=== PATIENT | male | born 1980 | race Caucasian/White ===

== ENCOUNTER 2017-09-12 21:50 | Observation (INO) | payer OTHER ==
[2017-09-12] MEDS ORDERED: NITROGLYCERIN SL TABS 0.4 MG TAB SUBLINGUAL STA (22:04)
[2017-09-12] MEDS ORDERED: ASPIRIN 81 MG PO STA (22:04)
--- NOTE | 2017-09-12 22:11 | ED ---
Chest Pain HPI - General Chief Complaint: Chest Pain Stated Complaint: Chest Pain Time Seen by Provider: 09/12/17 21:58 Source: patient, family, RN notes reviewed Mode of arrival: wheelchair Limitations: no limitations - History of Present Illness Initial Comments: This is a 37-year-old male who states he is next smoker who quit 3 years ago who states he started developing right and midsternal chest pain about 30 minutes prior to admission while he was preparing to eat states it radiated to his back down his left arm to his left wrist and elbow. Also up to his jaw. Patient denies any fevers chills nausea vomiting sweats he does state the pain patient states that the pain was sharp initially 7/10 severity states that sharp pains better recently has pain is unable to describe behind his left elbow is 3/10 consistently. No cough no phlegm production no abnormal activity. Again no prior history of chest pain or heart disease. MD Complaint: chest pain - Related Data Home Medications Medication Instructions Recorded Confirmed Ibuprofen [Motrin] 200 - 400 mg PO Q6HR PRN 09/12/17 09/12/17 amLODIPine [Norvasc] 5 mg PO DAILY 09/12/17 09/12/17 Allergies Allergy/AdvReac Type Severity Reaction Status Date / Time Iodine and Iodide Containing Allergy Nausea & Verified 09/12/17 22:10 Produc Vomiting Review of Systems ROS Statement: Those systems with pertinent positive or pertinent negative responses have been documented in the HPI. ROS Other: All systems not noted in ROS Statement are negative. EKG Findings - EKG Results: EKG: interpreted by REBECCA, sinus rhythm (Sinus rhythm rate of 81. Interval 174 QRS 100 QT since QTC 34/[address]-T wave changes.) Past Medical History Past Medical History: Hypertension, Sleep Apnea/CPAP/BIPAP Additional Past Medical History / Comment(s): Rotator Cuff injury History of Any Multi-Drug Resistant Organisms: MRSA Date of last positivie culture/infection: 2007 MDRO Source:: Throat Past Surgical History: Orthopedic Surgery Additional Past Surgical History / Comment(s): Rt knee arthroscopy; colonoscopy 2009 Past Psychological History: No Psychological Hx Reported Smoking Status: Former smoker Past Alcohol Use History: Rare Past Drug Use History: None Reported General Exam - General Exam Comments Initial Comments: This is a well developed well-nourished awake alert oriented 3 male he does demonstrate evidence of morbid obesity Limitations: no limitations General appearance: alert, in no apparent distress Head exam: Present: atraumatic, normocephalic, normal inspection Eye exam: Present: normal appearance, PERRL, EOMI. Absent: scleral icterus, conjunctival injection, periorbital swelling ENT exam: Present: normal exam, mucous membranes moist Neck exam: Present: normal inspection. Absent: tenderness, meningismus, lymphadenopathy Respiratory exam: Present: normal lung sounds bilaterally. Absent: respiratory distress, wheezes, rales, rhonchi, stridor, chest wall tenderness Cardiovascular Exam: Present: regular rate, normal rhythm, normal heart sounds. Absent: systolic murmur, diastolic murmur, rubs, gallop, clicks GI/Abdominal exam: Present: soft, normal bowel sounds, other (Obese abdomen). Absent: distended, tenderness, guarding, rebound, rigid, bruit, pulsatile mass, hernia Extremities exam: Present: normal inspection, full ROM, normal capillary refill. Absent: tenderness, pedal edema, joint swelling, calf tenderness Back exam: Present: normal inspection Neurological exam: Present: alert, oriented X3, CN II-XII intact Psychiatric exam: Present: normal affect, normal mood Skin exam: Present: warm, dry, intact, normal color. Absent: rash Course Vital Signs 09/12/17 09/12/17 09/12/17 21:52 22:48 22:53 Temperature 98.8 F Pulse Rate 67 76 90 Respiratory 18 16 16 Rate Blood Pressure 158/90 145/89 132/69 O2 Sat by Pulse 97 98 97 Oximetry 09/12/17 09/13/17 23:24 00:17 Temperature 97.7 F Pulse Rate 74 72 Respiratory 19 18 Rate Blood Pressure 142/74 137/73 O2 Sat by Pulse 98 98 Oximetry - Reevaluation(s) Reevaluation #1: 09/13/17 00:37 Reevaluation of the nitroglycerin reveals minimal improvement in the pain. He does state the pain is gone down he thinks by self however. Chest Pain MDM - MDM I did review the imaging and report there was left lower lung base probable atelectasis noted. I did discuss findings with patient family the patient's presentation is suspicious for acute coronary syndrome. He will be admitted lab work thus far is nondiagnostic. EKG was nondiagnostic. Disposition Clinical Impression: Unstable angina pectoris, Chest pain Disposition: ADMITTED IP TO THIS HOSP Condition: Stable Referrals: Juancho Ruiz MD [Primary Care Provider] - 1-2 days
[2017-09-12 22:54] LABS: Basophils # (A) 0.1 k/uL (0-0.2); Basophils % (A) 1 %; CHCM 33.3; Eosinophils # (A) 0.3 k/uL (0-0.7); Eosinophils % (A) 3 %; HCT 44.9 % (39.0-53.0); HDW 2.92; HGB 14.3 gm/dL (13.0-17.5); Luc # (Auto) 0.14; Luc % (Auto) 1; Lymphocytes # (A) 1.7 k/uL (1.0-4.8); Lymphocytes % (A) 17 %; MCH 26.9 pg (25.0-35.0); MCHC 31.8 g/dL (31.0-37.0); MCV 84.6 fL (80.0-100.0); Mean Platelet Volume 7.7; Monocytes # (A) 0.7 k/uL (0-1.0); Monocytes % (A) 7 %; Neutrophils # (A) 7.2 k/uL (1.3-7.7); Neutrophils % (A) 71 %; RBC 5.31 m/uL (4.30-5.90); RDW 15.3 % (11.5-15.5); WBC 10.1 k/uL (3.8-10.6); WBC (Perox) 9.87
[2017-09-12 23:05] LABS: ALT 42 U/L (21-72); AST 32 U/L (17-59); Alkaline Phosphatase 62 U/L (38-126); Amylase 36 U/L (30-110); Anion Gap 9 mmol/L; Blood Urea Nitrogen 10 mg/dL (9-20); Calcium 8.9 mg/dL (8.4-10.2); Carbon Dioxide 25 mmol/L (22-30); Chloride 106 mmol/L (98-107); Glucose 94 mg/dL (74-99); Magnesium 2.1 mg/dL (1.6-2.3); Non-African American GFR(MDRD) >60 (>60 ml/min/1.73 sqM); Potassium 4.3 mmol/L (3.5-5.1); Sodium 140 mmol/L (137-145); Total Bilirubin 0.8 mg/dL (0.2-1.3); Total Protein 6.6 g/dL (6.3-8.2)
[2017-09-12 23:17] LABS: Creatine Kinase 131 U/L (55-170)
[2017-09-12 23:30] LABS: Creatine Kinase MB 1.2 ng/mL (0.0-2.4); Troponin I <0.012 ng/mL (0.000-0.034)
--- NOTE | 2017-09-12 23:33 | XR ---
EXAM: XR Chest, 2 Views CLINICAL HISTORY: Reason: Chest Pain TECHNIQUE: Frontal and lateral views of the chest. COMPARISON: 09/15/2016 FINDINGS: Lungs: Opacity in the left lung base. The right lung is clear. Pleural space: Unremarkable. No pneumothorax. Heart: Unremarkable. No cardiomegaly. Mediastinum: Unremarkable. Bones/joints: No acute osseous abnormality. IMPRESSION: Opacity in the left lung base is nonspecific and may represent atelectasis. An infectious or inflammatory process is not excluded.
[2017-09-12 23:34] LABS: Partial Thromboplastin Time 22.2 sec (22.0-30.0); Prothrombin Time 10.2 sec (9.0-12.0)
[2017-09-13] MEDS ORDERED: HEPARIN SODIUM,PORCINE 5,000 UNIT/ML 1 ML VIAL IV ONE (00:39)
[2017-09-13] MEDS ORDERED: NITROGLYCERIN SL TABS 0.4 MG TAB SUBLINGUAL PRN (00:39)
[2017-09-13] MEDS ORDERED: SODIUM CHLORIDE 0.9% 1,000 ML IV SCH (00:45)
[2017-09-13] MEDS ORDERED: HEPARIN SOD,PORK IN 0.45% NACL 25,000 UNIT in 0.45% NACL 1 500ML.BAG IV SCH (00:45)
[2017-09-13] MEDS ORDERED: cloNIDine HCL 0.1 MG TAB PO PRN ×2 (02:24→02:35)
[2017-09-13 02:38] VITALS: BMI 58.9
[2017-09-13 03:19] VITALS: RESP 18
[2017-09-13 05:15] LABS: Creatine Kinase 100 U/L (55-170)
[2017-09-13 05:27] LABS: Troponin I <0.012 ng/mL (0.000-0.034)
[2017-09-13] MEDS ORDERED: NITROGLYCERIN OINT 1 INCH/GM PACKET TOPICAL SCH (06:00)
[2017-09-13] MEDS ORDERED: HEPARIN SODIUM,PORCINE 5,000 UNIT/ML 1 ML VIAL IV PRN (07:09)
[2017-09-13] MEDS ORDERED: amLODIPine 5 MG TAB PO SCH (09:00)
[2017-09-13] MEDS ORDERED: cloNIDine HCL 0.2 MG TAB PO SCH (09:15)
--- NOTE | 2017-09-13 09:30 | P.CRDCN ---
History of Present Illness Consult date: 09/13/17 Consult reason: chest pain History of present illness: 57-year-old gentleman comes to Hospital complaining of chest pain. He describes it as precordial chest discomfort that radiates to his back. The pain gets worse with movement and deep breathing. He has prior diagnosis of costochondritis and muscular skeletal pain. Its mild to moderate intensity came on at rest without clear-cut relieving or exacerbating factors. At the time of my evaluation he appears comfortable at rest and the chest pain has improved. EKG doesn't reveal acute ischemic changes. Troponins are negative. D-dimer is negative. An echocardiogram is pending at this time. I will obtain a stress echo on him if this is abnormal consider invasive angiography Review of Systems Constitutional: Denies chills. Denies fever. Eyes: Denies blurred vision. Denies pain. Ears, nose, mouth and throat: Denies headache. Denies sore throat. Cardiovascular: chest pain. Denies shortness of breath. Respiratory: Denies cough. Gastrointestinal: Denies abdominal pain. Denies diarrhea. Denies nausea. Denies vomiting. Musculoskeletal: Denies myalgias. Integumentary: Denies pruritus. Denies rash. Neurological: Denies numbness. Denies weakness. Psychiatric: Denies anxiety. Denies depression. Endocrine: Denies fatigue. Denies weight change. Genitourinary: Denies burning, hematuria, frequency of urination. Hematological: No anemia or excess bleeding. Past Medical History Past Medical History: Hypertension, Sleep Apnea/CPAP/BIPAP Additional Past Medical History / Comment(s): Rotator Cuff injury, negative stress test 2013 History of Any Multi-Drug Resistant Organisms: MRSA Date of last positivie culture/infection: 2007 MDRO Source:: Throat Past Surgical History: Orthopedic Surgery Additional Past Surgical History / Comment(s): Rt knee arthroscopy; colonoscopy 2009; rt rotator cuff repair, Past Psychological History: No Psychological Hx Reported Smoking Status: Former smoker Past Alcohol Use History: Rare Past Drug Use History: None Reported - Past Family History Father Family Medical History: Cancer, Hypertension Mother Family Medical History: No Reported History Medications and Allergies Home Medications Medication Instructions Recorded Confirmed Type Ibuprofen [Motrin] 200 - 400 mg PO Q6HR PRN 09/12/17 09/12/17 History amLODIPine [Norvasc] 5 mg PO DAILY 09/12/17 09/12/17 History Allergies Allergy/AdvReac Type Severity Reaction Status Date / Time Iodine and Iodide Containing Allergy Nausea & Verified 09/12/17 22:10 Produc Vomiting Physical Exam Vitals: Vital Signs Temp Pulse Pulse Resp BP BP Pulse Ox 09/13/17 08:00 97.6 F 83 18 174/90 94 L 09/13/17 04:00 66 18 144/91 92 L 09/13/17 03:00 164/92 09/13/17 02:30 172/107 09/13/17 02:15 96.8 F L 68 18 173/100 97 09/13/17 01:14 97.7 F 70 19 161/86 98 09/13/17 00:17 72 18 137/73 98 09/12/17 23:24 97.7 F 74 19 142/74 98 09/12/17 22:53 90 16 132/69 97 09/12/17 22:48 76 16 145/89 98 09/12/17 21:52 98.8 F 67 18 158/90 97 Intake and Output 09/12/17 09/13/17 09/13/17 22:59 06:59 14:59 Intake Total 118.333 Balance 118.333 Intake: Intake, IV Titration 118.333 Amount Heparin Sod,Pork in 0.45% 118.333 NaCl 25,000 unit In 0.45 % NaCl 1 500ml.bag @ 5.3 UNITS/KG/HR 20.32 mls/hr IV .Q24H [facility] Rx#: [id number] Other: Voiding Method Toilet # Voids 0 Weight 195.045 kg 191.1 kg General: The patient is awake and alert, in no distress, and does not appear acutely ill. Skin: Skin is warm and dry and no rashes or lesions are noted. Eye: Pupils are equal, round and reactive to light, extra-ocular movements are intact; there is normal conjunctiva bilaterally. Ears, nose, mouth and throat: There are moist mucous membranes and no oral lesions. Neck: The neck is supple, there is no tenderness or JVD. Cardiovascular: There is a regular rate and rhythm. No murmur, rub or gallop is appreciated. Respiratory: Lungs are clear to auscultation, respirations are non-labored, breath sounds are equal. Gastrointestinal: Soft, non-distended, non-tender abdomen without masses or organomegaly noted. There is no rebound or guarding present. Bowel sounds are unremarkable. Back: There is no tenderness to palpation in the midline. There is no obvious deformity. Musculoskeletal: Normal ROM, no tenderness, There is no pedal edema. There is no calf tenderness or swelling. Extremities: No edema. Vascular: Femoral pulse is normal. Posterior tibial pulses are normal .Dorsalis pedis is palpable. Neurological: CN II-XII intact. There are no obvious motor or sensory deficits. Speech is normal. Psychiatric: Cooperative, appropriate mood & affect, normal judgment. Results 09/12/17 22:42 09/12/17 22:42 Cardiac Enzymes 09/12/17 09/12/17 09/13/17 Range/Units 22:42 22:42 04:39 AST 32 (17-59) U/L CK-MB (CK-2) 1.2 1.0 (0.0-2.4) ng/mL Troponin I <0.012 <0.012 (0.000-0.034) ng/mL Coagulation 09/12/17 09/13/17 Range/Units 22:42 06:24 PT 10.2 (9.0-12.0) sec APTT 22.2 25.9 (22.0-30.0) sec CBC 09/12/17 Range/Units 22:42 WBC 10.1 (3.8-10.6) k/uL RBC 5.31 (4.30-5.90) m/uL Hgb 14.3 (13.0-17.5) gm/dL Hct 44.9 (39.0-53.0) % Plt Count 298 (150-450) k/uL Comprehensive Metabolic Panel 09/12/17 Range/Units 22:42 Sodium 140 (137-145) mmol/L Potassium 4.3 (3.5-5.1) mmol/L Chloride 106 (98-107) mmol/L Carbon Dioxide 25 (22-30) mmol/L BUN 10 (9-20) mg/dL Creatinine 0.70 (0.66-1.25) mg/dL Glucose 94 (74-99) mg/dL Calcium 8.9 (8.4-10.2) mg/dL AST 32 (17-59) U/L ALT 42 (21-72) U/L Alkaline Phosphatase 62 (38-126) U/L Total Protein 6.6 (6.3-8.2) g/dL Albumin 3.4 L (3.5-5.0) g/dL Current Medications Generic Name Dose Route Start Last Admin Trade Name Mona PRN Reason Stop Dose Admin Amlodipine Besylate 10 mg 09/14/17 09:00 Norvasc PO DAILY [facility] Aspirin 325 mg 09/14/17 09:00 Aspirin PO DAILY [facility] Clonidine 0.2 mg 09/13/17 09:15 Catapres PO BID [facility] Heparin Sodium (Porcine) 0 unit 09/13/17 07:09 09/13/17 08:13 Heparin IV 4,000 unit PER PROTOCOL PRN Administration Low PTT Protocol Heparin Sodium/Sodium Chloride 500 mls @ 20.32 mls/hr 09/13/17 00:45 07:07 25,000 unit/ Sodium Chloride IV 8.12 units/kg/hr .Q24H ANNE 31.14 mls/hr Protocol Titration 5.3 UNITS/KG/HR Sodium Chloride 1,000 mls @ 20 mls/hr 09/13/17 00:45 09/13/17 01:09 Saline 0.9% IV 20 mls/hr .Q24H ANNE Administration Nitroglycerin 0.4 mg 09/13/17 00:39 Nitrostat SUBLINGUAL Q5M PRN Chest Pain Intake and Output 09/12/17 09/13/17 09/13/17 22:59 06:59 14:59 Intake Total 118.333 Balance 118.333 Intake: Intake, IV Titration 118.333 Amount Heparin Sod,Pork in 0.45% 118.333 NaCl 25,000 unit In 0.45 % NaCl 1 500ml.bag @ 5.3 UNITS/KG/HR 20.32 mls/hr IV .Q24H [facility] Rx#: [id number] Other: Voiding Method Toilet # Voids 0 Weight 195.045 kg 191.1 kg 09/12/17 22:42 09/12/17 22:42 EKG Interpretations (text) Normal sinus rhythm within normal limits Assessment and Plan Assessment: Precordial chest pain Hypertension Myocardial infarction is ruled out patient chest discomfort seems atypical and probably musculoskeletal. I will obtain a stress echo if this is abnormal will consider cardiac catheterization if not will work on risk factor modification
[2017-09-13 12:34] LABS: Creatine Kinase 85 U/L (55-170)
[2017-09-13 12:47] LABS: Creatine Kinase MB 0.7 ng/mL (0.0-2.4); Troponin I <0.012 ng/mL (0.000-0.034)
--- NOTE | 2017-09-13 13:37 | ECHOS ---
STRESS ECHOCARDIOGRAM DATE OF SERVICE: 09/13/2017 INDICATIONS: Chest pain. MEDICATIONS:: Amlodipine. BASELINE HEART RATE: 91 BASELINE BLOOD PRESSURE: 144/101 MAXIMUM HEART RATE: 156 MAXIMUM BLOOD PRESSURE: 177/67 85% MPHR: 157 100% MPHR: 185 METS: 8.3 MAXIMUM STAGE REACHED: III TOTAL EXERCISE TIME: 7 minutes CLINICAL INFORMATION: This is a very morbidly obese patient and his images were suboptimal. I therefore used Definity. Baseline EKG revealed normal sinus rhythm without significant ST-T changes. Patient walked for about 7 minutes, achieved a maximal heart rate of 156 beats per minute which is almost 85% of predicted maximum. Developed fatigue and shortness of breath. He also had some atypical sharp chest discomfort. EKG did not reveal any ST-segment changes to indicate ischemia. By EKG criteria, this is a negative stress test with fair exercise capacity with atypical chest pain. Baseline echo images revealed normal wall motion wall thickening of all segments. At peak exercise, there was good augmentation of left ventricular wall motion and wall thickening of all segments. By the time images were obtained, heart rate was lower, but at a rate 132 beats per minute, his ejection fraction has improved and there is no evidence to suggest any ischemia on this stress echocardiogram. FINAL IMPRESSION: 1. Fair exercise capacity with a negative stress test by EKG criteria. 2. Echo images were suboptimal, Definity was used, but there is no evidence to suggest any ischemia on the basis of stress echocardiogram. FELI / LAURIE: [id number] /
[2017-09-13 15:58] VITALS: BP 161/103; PULSE 90; TEMP 98.1
--- NOTE | 2017-09-13 20:28 | HP ---
HISTORY AND PHYSICAL DATE OF ADMISSION: 09/13/17 PRESENTING COMPLAINT: Sharp chest pain. HISTORY OF PRESENTING COMPLAINT: This is a very pleasant 37-year-old patient of Dr. Ruiz whose chronic stable medical conditions include hypertension, obstructive sleep apnea uses CPAP machine and morbid obesity. The patient did have a stress test in 2013 that was negative. In the last course of 3 years, patient has put about 130 pounds. Last night, the patient developed sharp anterior chest pain, did also have some back pain, also some jaw pain and some arm pain. No sweating. No dizziness. No tiredness. The patient did not remembering doing any usual activity. Decided to come in. The patient is rather active at work. No prior cardiac history. REVIEW OF SYSTEMS: CONSTITUTIONAL: None. HEENT: None. RESPIRATORY: None. CARDIOVASCULAR: As above. GASTROINTESTINAL: None. GENITOURINARY: None. MUSCULOSKELETAL: None. DERMATOLOGICAL: None, HEMATOLOGIC, LYMPHATIC: none. PSYCHIATRY: None. NEUROLOGICAL: None. PAST MEDICAL HISTORY: Hypertension, obstructive sleep apnea, obesity, rotator cuff injury. PAST SURGICAL HISTORY: Orthopedic surgery, right knee arthroscopy right rotator cuff surgery. SOCIAL HISTORY: Patient smoked for 10 years, stopped 3 years ago. . The patient works at [employer]. FAMILY HISTORY: Family history of cancer, hypertension, type unknown. HOME MEDICATIONS: 1. Motrin 200-400 mg q.6h p.r.n. 2. Norvasc 5 mg p.o. daily. ALLERGIES: To [employer]. PHYSICAL EXAMINATION: Vital signs on presentation: Temperature 98.8, pulse 57, respiratory 18, blood pressure 150/90, pulse ox 97% on room air. GENERAL APPEARANCE: Well built, BMI 58.8, sitting up, comfortable. EYES: Pupils equal. Conjunctivae normal. HEENT: Oral cavity normal. NECK: JVD not raised. Mass not palpable. RESPIRATORY: Effort normal. Lungs are clear. CARDIOVASCULAR: 1st and 2nd sounds. No edema. ABDOMEN: Soft, nontender. Liver and spleen not palpable. LYMPHATIC: No lymph nodes palpable in neck or axillae. PSYCHIATRY: Alert and oriented x3. Mood and affect normal. NEUROLOGICAL: Pupils equal. Cranial nerves grossly intact. Power sensation grossly intact. INVESTIGATION: White count 10.1, hemoglobin 14.3 potassium 4.3, BUN and creatinine normal. Troponin x3 is negative. EKG normal sinus rhythm. ASSESSMENT: 1. Anterior chest wall pain as patient has patient has put on about 130 pounds in the last 3 years, likely musculoskeletal given his morbid obesity. Cardiac cause needs to be ruled out. 2. Essential hypertension, somewhat uncontrolled. 3. Morbid obesity, BMI 58.8. 4. Obstructive sleep apnea, does use a CPAP machine. PLAN: Cardiology was consulted who ordered a stress test. Blood pressure medications were adjusted. Did talk to patient at length about weight loss measures. MMADDIEL / IJN: [id number] /
--- NOTE | 2017-09-13 21:23 | DS ---
DISCHARGE SUMMARY FINAL DIAGNOSES: 1. Anterior chest wall pain possibly musculoskeletal. 2. Morbid obesity BMI 58.8. 3. Essential hypertension uncontrolled present on admission. 4. Obstructive sleep apnea. Patient does use CPAP machine. HOSPITAL COURSE: This patient presented with atypical chest pain and did undergo stress echocardiogram that was negative. Seen by Dr. Adeline Santos. Okay to be discharged. I did speak at length with the patient about weight loss measures. The patient's blood pressure medications were adjusted. DISCHARGE MEDICATIONS: Motrin 2-400 mg q.6h p.r.n. Norvasc 10 mg p.o. daily new dose, Catapres 0.2 mg p.o. b.i.d., new medication. Follow with Dr. Ruiz on September 16, 2017, follow with Dr. Adeline Santos in 1 week. Diet: Calorie restricted diet. Patient should follow with the dietitian also as an outpatient. Copy to Dr. Ruiz. MMJENNA / HANNAHN: [id number] /
[2017-09-14] MEDS ORDERED: ASPIRIN 325 MG TAB PO SCH (09:00)
[2017-09-14] MEDS ORDERED: amLODIPine 10 MG TAB PO SCH (09:00)
== END 2017-09-13 16:36 | disposition home or self-care (01) ==
LOC: EC 21:50 → 3OBS 09-13 00:39 → 6SEL 09-13 02:01
PROVIDERS: ADMIT Hospitalist; ATTEND Hospitalist
DX: R07.89 Other chest pain (principal); E66.01 Morbid (severe) obesity due to excess calories; Z68.43 Body mass index [BMI] 50.0-59.9, adult; I10 Essential (primary) hypertension; R68.84 Jaw pain; M54.9 Dorsalgia, unspecified; M79.602 Pain in left arm; G47.33 Obstructive sleep apnea (adult) (pediatric); Z99.89 Dependence on other enabling machines and devices; Z79.899 Other long term (current) drug therapy; Z91.048 Other nonmedicinal substance allergy status; Z87.891 Personal history of nicotine dependence; Z86.14 Personal history of Methicillin resistant Staphylococcus aureus infection; Z87.828 Personal history of other (healed) physical injury and trauma
CPT/HCPCS: 99285 ×2; 96376 ×3; 96365 ×2; 36415; 93005; 93350; 93017; 85379; 83880; 80053; 82150; 82550 ×2; 82553 ×2; 83690; 83735; 84484 ×2; 85025; 85610; 85730 ×2; 71020; G0378; J1644 ×2; Q9957

== ENCOUNTER 2019-08-21 03:07 | Emergency (ER) | payer OTHER ==
[2019-08-21] MEDS ORDERED: SODIUM CHLORIDE 0.9% 1,000 ML IV STA (04:22)
--- NOTE | 2019-08-21 04:25 | ED ---
Dizziness HPI - General Source: patient Mode of arrival: ambulatory Limitations: no limitations <Delmar Davis - Last Filed: 08/21/19 04:25> <Alan Chopra - Last Filed: 08/21/19 05:29> - General Chief Complaint: Dizziness Stated Complaint: Dizzy Time Seen by Provider: 08/21/19 03:19 - History of Present Illness Initial Comments: Patient is 39-year-old male presenting to the emergency department with a chief complaint of lightheadedness and dizziness. Patient reports he went to work at 2100 and mildly was standing and developed an on and off episodes of lightheadedness and dizziness. Patient reports the lightheadedness since resolved, however the mild dizziness is continuing. Patient denies any headaches, blurry vision, shortness breath, chest pain or chest wall edition, gait instability. Patient denies recent URIs. Patient denies. Episodes of vertigo. Patient denies changes in hearing or tinnitus. (Delmar Davis) - Related Data Home Medications Medication Instructions Recorded Confirmed Ibuprofen [Motrin] 200 - 400 mg PO Q6HR PRN 09/12/17 09/12/17 Previous Rx's Medication Instructions Recorded amLODIPine [Norvasc] 10 mg PO DAILY #30 tab 09/13/17 cloNIDine HCL [Catapres] 0.2 mg PO BID #60 tab 09/13/17 Meclizine [Antivert] 25 mg PO TID PRN #30 tab 08/21/19 Allergies Allergy/AdvReac Type Severity Reaction Status Date / Time Iodine and Iodide Containing Allergy Nausea & Verified 08/21/19 03:18 Produc Vomiting Review of Systems ROS Other: All systems not noted in ROS Statement are negative. <Delmar Davis - Last Filed: 08/21/19 04:25> ROS Other: All systems not noted in ROS Statement are negative. <Alan Chopra - Last Filed: 08/21/19 05:29> ROS Statement: Those systems with pertinent positive or pertinent negative responses have been documented in the HPI. Past Medical History Past Medical History: Hypertension, Sleep Apnea/CPAP/BIPAP Additional Past Medical History / Comment(s): Rotator Cuff injury, negative stress test 2013 History of Any Multi-Drug Resistant Organisms: MRSA Date of last positivie culture/infection: 2007 MDRO Source:: Throat Past Surgical History: Orthopedic Surgery Additional Past Surgical History / Comment(s): Rt knee arthroscopy; colonoscopy 2010; rt rotator cuff repair, Past Psychological History: No Psychological Hx Reported Smoking Status: Former smoker Past Alcohol Use History: Rare Past Drug Use History: None Reported - Past Family History Father Family Medical History: Cancer, Hypertension Mother Family Medical History: No Reported History <Delmar Davis - Last Filed: 08/21/19 04:25> General Exam Limitations: no limitations General appearance: alert, in no apparent distress, obese Head exam: Present: atraumatic, normocephalic, normal inspection Eye exam: Present: normal appearance Pupils: Present: normal accommodation ENT exam: Present: normal exam, mucous membranes moist Neck exam: Present: normal inspection, full ROM Respiratory exam: Present: normal lung sounds bilaterally Cardiovascular Exam: Present: regular rate, normal rhythm, normal heart sounds Extremities exam: Present: normal inspection, full ROM Back exam: Present: normal inspection, full ROM Neurological exam: Present: alert, oriented X3, CN II-XII intact, normal gait Psychiatric exam: Present: normal affect, normal mood Skin exam: Present: warm, dry, intact, normal color <Delmar Davis - Last Filed: 08/21/19 04:25> Course Vital Signs 08/21/19 08/21/19 03:15 04:34 Temperature 98.2 F Pulse Rate 81 83 Respiratory 20 18 Rate Blood Pressure 171/123 161/101 O2 Sat by Pulse 96 98 Oximetry EKG Findings - EKG Comments: EKG Findings:: Normal sinus rhythm, T-wave inversions in lead 3. Left axis deviation. Ventricular rate 79 AL interval 166, QRS duration 98, QT/QTC 346/396 <Delmar Davis - Last Filed: 08/21/19 04:25> Medical Decision Making - Lab Data Result diagrams: 08/21/19 04:02 08/21/19 04:02 <Alan Chopra - Last Filed: 08/21/19 05:29> - Medical Decision Making 39-year-old male episode of dizziness while working this evening. Symptoms resolved with time my evaluation. He does describe a room spinning sensation. No history of vertigo. No recent URI symptoms. No earaches. Patient well- appearing mildly hypertensive emergency department. No other associated symptoms no headache no focal numbness or weakness. No chest pain or palpitations. Patient has normal CBC normal electrolytes, EKG sinus rhythm. No abdominal pain nausea vomiting. Patient feeling better with IV fluids and meclizine. Will be discharged at this time. Will return with worsening or changing symptoms. (Alan Chopra) - Lab Data Lab Results 08/21/19 08/21/19 Range/Units 04:02 04:02 WBC 9.4 (3.8-10.6) k/uL RBC 5.63 (4.30-5.90) m/uL Hgb 16.0 (13.0-17.5) gm/dL Hct 48.6 (39.0-53.0) % MCV 86.3 (80.0-100.0) fL MCH 28.3 (25.0-35.0) pg MCHC 32.8 (31.0-37.0) g/dL RDW 13.8 (11.5-15.5) % Plt Count 301 (150-450) k/uL Neutrophils % 68 % Lymphocytes % 20 % Monocytes % 6 % Eosinophils % 2 % Basophils % 2 % Neutrophils # 6.4 (1.3-7.7) k/uL Lymphocytes # 1.8 (1.0-4.8) k/uL Monocytes # 0.6 (0-1.0) k/uL Eosinophils # 0.2 (0-0.7) k/uL Basophils # 0.2 (0-0.2) k/uL Sodium 139 (137-145) mmol/L Potassium (3.5-5.1) mmol/L Chloride 107 (98-107) mmol/L Carbon Dioxide 26 (22-30) mmol/L Anion Gap 6 mmol/L BUN 12 (9-20) mg/dL Creatinine 0.75 (0.66-1.25) mg/dL Est GFR (CKD-EPI)AfAm >90 (>60 ml/min/1.73 sqM) Est GFR (CKD-EPI)NonAf >90 (>60 ml/min/1.73 sqM) Glucose 84 (74-99) mg/dL Calcium 9.1 (8.4-10.2) mg/dL Total Bilirubin 1.4 H (0.2-1.3) mg/dL AST 68 H (17-59) U/L ALT 18 L (21-72) U/L Alkaline Phosphatase 45 (38-126) U/L Total Protein 8.0 (6.3-8.2) g/dL Albumin 4.3 (3.5-5.0) g/dL Disposition <Delmar Davis - Last Filed: 08/21/19 04:25> Is patient prescribed a controlled substance at d/c from ED?: No Time of Disposition: 05:27 <Alan Chopra - Last Filed: 08/21/19 05:29> Clinical Impression: Dehydration, Vertigo Disposition: HOME SELF-CARE Condition: Fair Instructions (If sedation given, give patient instructions): Dizziness (ED) Prescriptions: Meclizine [Antivert] 25 mg PO TID PRN #30 tab PRN Reason: Vertigo Referrals: Juancho Ruiz MD [Primary Care Provider] - 1-2 days
[2019-08-21 04:30] LABS: Basophils # (A) 0.2 k/uL (0-0.2); Basophils % (A) 2 %; Eosinophils # (A) 0.2 k/uL (0-0.7); Eosinophils % (A) 2 %; HCT 48.6 % (39.0-53.0); Lymphocytes # (A) 1.8 k/uL (1.0-4.8); Lymphocytes % (A) 20 %; MCH 28.3 pg (25.0-35.0); MCHC 32.8 g/dL (31.0-37.0); MCV 86.3 fL (80.0-100.0); Mean Platelet Volume 7.7; Monocytes # (A) 0.6 k/uL (0-1.0); Monocytes % (A) 6 %; Neutrophils # (A) 6.4 k/uL (1.3-7.7); Neutrophils % (A) 68 %; Platelet Count 301 k/uL (150-450); RBC 5.63 m/uL (4.30-5.90); RDW 13.8 % (11.5-15.5); WBC 9.4 k/uL (3.8-10.6)
[2019-08-21 04:35] VITALS: RESP 18
[2019-08-21 04:39] LABS: ALT 18 U/L (21-72); AST 68 U/L (17-59); African American GFR (CKD) >90 (>60 ml/min/1.73 sqM); Albumin 4.3 g/dL (3.5-5.0); Alkaline Phosphatase 45 U/L (38-126); Anion Gap 6 mmol/L; Blood Urea Nitrogen 12 mg/dL (9-20); Calcium 9.1 mg/dL (8.4-10.2); Carbon Dioxide 26 mmol/L (22-30); Chloride 107 mmol/L (98-107); Glucose 84 mg/dL (74-99); Non-African American GFR(CKD) >90 (>60 ml/min/1.73 sqM); Sodium 139 mmol/L (137-145); Total Bilirubin 1.4 mg/dL (0.2-1.3)
[2019-08-21 05:55] VITALS: BP 147/90; PULSE 80; TEMP 98.7
== END 2019-08-21 05:55 | disposition home or self-care (01) ==
LOC: EC 03:07
DX: E86.0 Dehydration (principal); I16.1 Hypertensive emergency; G47.30 Sleep apnea, unspecified; Z87.891 Personal history of nicotine dependence; Z91.048 Other nonmedicinal substance allergy status; Z86.14 Personal history of Methicillin resistant Staphylococcus aureus infection; Z86.79 Personal history of other diseases of the circulatory system; Z99.89 Dependence on other enabling machines and devices; Z82.49 Family history of ischemic heart disease and other diseases of the circulatory system
CPT/HCPCS: 36415; 80053; 85025; 93005; 96360; 99284

== ENCOUNTER 2020-10-06 20:13 | Observation (INO) | payer OTHER ==
--- NOTE | 2020-10-06 20:53 | XR ---
EXAMINATION TYPE: XR chest 2V DATE OF EXAM: 10/06/2020 COMPARISON: 09/12/2017 HISTORY: Chest pain TECHNIQUE: 2 views FINDINGS: Heart and mediastinum are normal. There is some minimal infiltrate at the left lung base. T he right lung is clear. There are no hilar masses. Bony thorax is intact. There is no heart failure. IMPRESSION: Minimal chronic infiltrate left lung base similar to old exam. Normal heart.
[2020-10-06] MEDS ORDERED: ASPIRIN 81 MG PO STA (20:55)
[2020-10-06] MEDS ORDERED: NITROGLYCERIN SL TABS 0.4 MG TAB SUBLINGUAL STA ×3 (20:55)
[2020-10-06 21:03] LABS: Basophils # (A) 0.1 k/uL (0-0.2); Basophils % (A) 1 %; Eosinophils # (A) 0.3 k/uL (0-0.7); Eosinophils % (A) 4 %; HCT 48.6 % (39.0-53.0); HGB 16.2 gm/dL (13.0-17.5); Lymphocytes # (A) 2.3 k/uL (1.0-4.8); Lymphocytes % (A) 29 %; MCH 28.1 pg (25.0-35.0); MCHC 33.3 g/dL (31.0-37.0); MCV 84.5 fL (80.0-100.0); Mean Platelet Volume 7.8; Monocytes # (A) 0.5 k/uL (0-1.0); Monocytes % (A) 7 %; Neutrophils # (A) 4.6 k/uL (1.3-7.7); Neutrophils % (A) 58 %; Platelet Count 287 k/uL (150-450); RBC 5.75 m/uL (4.30-5.90); RDW 14.4 % (11.5-15.5)
--- NOTE | 2020-10-06 21:03 | ED ---
General Adult HPI - General Chief complaint: Chest Pain Stated complaint: Chest Pain/COVID+ Time Seen by Provider: 10/06/20 20:30 Source: patient, RN notes reviewed Mode of arrival: ambulatory Limitations: no limitations - History of Present Illness Initial comments: Patient is a pleasant 40-year-old male presenting to the emergency Department with complaints of chest discomfort. Onset of symptoms was around an hour ago. Discomfort is moderate at this time. Hard to describe. No radiation. Patient does feel short of breath. No history of similar symptoms previously. No leg pain or leg swelling. Patient did have cough and tested positive for covid several days ago. Patient has not had any cough recently. - Related Data Home Medications Medication Instructions Recorded Confirmed Ibuprofen [Motrin] 200 - 400 mg PO Q6HR PRN 09/12/17 09/12/17 Previous Rx's Medication Instructions Recorded amLODIPine [Norvasc] 10 mg PO DAILY #30 tab 09/13/17 cloNIDine HCL [Catapres] 0.2 mg PO BID #60 tab 09/13/17 Meclizine [Antivert] 25 mg PO TID PRN #30 tab 08/21/19 Allergies Allergy/AdvReac Type Severity Reaction Status Date / Time Iodine and Iodide Containing Allergy Nausea & Verified 10/06/20 20:19 Produc Vomiting Review of Systems ROS Statement: Those systems with pertinent positive or pertinent negative responses have been documented in the HPI. ROS Other: All systems not noted in ROS Statement are negative. Constitutional: Denies: fever, chills Eyes: Denies: eye pain ENT: Denies: ear pain Respiratory: Reports: as per HPI Cardiovascular: Reports: chest pain Endocrine: Denies: fatigue Gastrointestinal: Denies: abdominal pain Genitourinary: Denies: dysuria Musculoskeletal: Denies: back pain Skin: Denies: rash Neurological: Denies: weakness Past Medical History Past Medical History: Hypertension, Sleep Apnea/CPAP/BIPAP Additional Past Medical History / Comment(s): Rotator Cuff injury, negative stress test 2013 History of Any Multi-Drug Resistant Organisms: MRSA Date of last positivie culture/infection: 2007 MDRO Source:: Throat Past Surgical History: Orthopedic Surgery Additional Past Surgical History / Comment(s): Rt knee arthroscopy; colonoscopy 2009; rt rotator cuff repair, Past Psychological History: No Psychological Hx Reported Smoking Status: Former smoker Past Alcohol Use History: Rare Past Drug Use History: None Reported - Past Family History Father Family Medical History: Cancer, Hypertension Mother Family Medical History: No Reported History General Exam Limitations: no limitations General appearance: alert, in no apparent distress, obese Head exam: Present: normocephalic Eye exam: Present: normal appearance Neck exam: Present: normal inspection Respiratory exam: Present: normal lung sounds bilaterally Cardiovascular Exam: Present: regular rate, normal rhythm Expanded Peripheral pulses: 2+: Radial (R), Radial (L), Posterior Tibialis (R), Posterior Tibialis (L) GI/Abdominal exam: Present: soft. Absent: tenderness Extremities exam: Present: normal inspection. Absent: calf tenderness Neurological exam: Present: alert Psychiatric exam: Present: normal affect, normal mood Skin exam: Present: normal color Course Vital Signs 10/06/20 10/06/20 10/06/20 20:16 21:20 22:01 Temperature 98.7 F Pulse Rate 63 69 74 Respiratory 20 18 18 Rate Blood Pressure 181/105 150/84 109/99 O2 Sat by Pulse 96 94 L 98 Oximetry EKG Findings - EKG Comments: EKG Findings:: Sinus rhythm with a rate of 70. ID 182. QRS 96. QT 388. QTC 419. Left axis. Normal QRS. No acute ST change. Medical Decision Making - Medical Decision Making Patient reevaluated and resting comfortably sitting up in bed. Patient states not much improvement of symptoms. Patient updated on results and plan. Case discussed with Dr. Sosa, who will admit covering for Dr. Ruiz - Lab Data Result diagrams: 10/06/20 20:54 10/06/20 20:54 Lab Results 10/06/20 10/06/20 10/06/20 Range/Units 20:54 20:54 20:54 WBC 8.0 (3.8-10.6) k/uL RBC 5.75 (4.30-5.90) m/uL Hgb 16.2 (13.0-17.5) gm/dL Hct 48.6 (39.0-53.0) % MCV 84.5 (80.0-100.0) fL MCH 28.1 (25.0-35.0) pg MCHC 33.3 (31.0-37.0) g/dL RDW 14.4 (11.5-15.5) % Plt Count 287 (150-450) k/uL MPV 7.8 Neutrophils % 58 % Lymphocytes % 29 % Monocytes % 7 % Eosinophils % 4 % Basophils % 1 % Neutrophils # 4.6 (1.3-7.7) k/uL Lymphocytes # 2.3 (1.0-4.8) k/uL Monocytes # 0.5 (0-1.0) k/uL Eosinophils # 0.3 (0-0.7) k/uL Basophils # 0.1 (0-0.2) k/uL PT 10.3 (9.0-12.0) sec INR 1.0 (<1.2) APTT 22.4 (22.0-30.0) sec D-Dimer 0.37 (<0.60) mg/L FEU Sodium 137 (137-145) mmol/L Potassium 3.8 (3.5-5.1) mmol/L Chloride 104 (98-107) mmol/L Carbon Dioxide 29 (22-30) mmol/L Anion Gap 4 mmol/L BUN 16 (9-20) mg/dL Creatinine 0.73 (0.66-1.25) mg/dL Est GFR (CKD-EPI)AfAm >90 (>60 ml/min/1.73 sqM) Est GFR (CKD-EPI)NonAf >90 (>60 ml/min/1.73 sqM) Glucose 131 H (74-99) mg/dL Calcium 9.1 (8.4-10.2) mg/dL Magnesium 1.8 (1.6-2.3) mg/dL Total Bilirubin 0.6 (0.2-1.3) mg/dL AST 32 (17-59) U/L ALT 37 (4-49) U/L Alkaline Phosphatase 55 (38-126) U/L Troponin I (0.000-0.034) ng/mL Total Protein 6.7 (6.3-8.2) g/dL Albumin 3.6 (3.5-5.0) g/dL 10/06/20 Range/Units 20:54 WBC (3.8-10.6) k/uL RBC (4.30-5.90) m/uL Hgb (13.0-17.5) gm/dL Hct (39.0-53.0) % MCV (80.0-100.0) fL MCH (25.0-35.0) pg MCHC (31.0-37.0) g/dL RDW (11.5-15.5) % Plt Count (150-450) k/uL MPV Neutrophils % % Lymphocytes % % Monocytes % % Eosinophils % % Basophils % % Neutrophils # (1.3-7.7) k/uL Lymphocytes # (1.0-4.8) k/uL Monocytes # (0-1.0) k/uL Eosinophils # (0-0.7) k/uL Basophils # (0-0.2) k/uL PT (9.0-12.0) sec INR (<1.2) APTT (22.0-30.0) sec D-Dimer (<0.60) mg/L FEU Sodium (137-145) mmol/L Potassium (3.5-5.1) mmol/L Chloride (98-107) mmol/L Carbon Dioxide (22-30) mmol/L Anion Gap mmol/L BUN (9-20) mg/dL Creatinine (0.66-1.25) mg/dL Est GFR (CKD-EPI)AfAm (>60 ml/min/1.73 sqM) Est GFR (CKD-EPI)NonAf (>60 ml/min/1.73 sqM) Glucose (74-99) mg/dL Calcium (8.4-10.2) mg/dL Magnesium (1.6-2.3) mg/dL Total Bilirubin (0.2-1.3) mg/dL AST (17-59) U/L ALT (4-49) U/L Alkaline Phosphatase (38-126) U/L Troponin I <0.012 (0.000-0.034) ng/mL Total Protein (6.3-8.2) g/dL Albumin (3.5-5.0) g/dL - Radiology Data Radiology results: image reviewed (Chest x-ray shows minimal chronic infiltrate left base, unchanged) Disposition Clinical Impression: Chest pain Disposition: ADMITTED IP TO THIS [facility] Is patient prescribed a controlled substance at d/c from ED?: No Referrals: Juancho Ruiz MD [Primary Care Provider] - 1-2 days Decision Time: 22:04
[2020-10-06 21:12] LABS: ALT 37 U/L (4-49); AST 32 U/L (17-59); African American GFR (CKD) >90 (>60 ml/min/1.73 sqM); Albumin 3.6 g/dL (3.5-5.0); Alkaline Phosphatase 55 U/L (38-126); Anion Gap 4 mmol/L; Blood Urea Nitrogen 16 mg/dL (9-20); Calcium 9.1 mg/dL (8.4-10.2); Carbon Dioxide 29 mmol/L (22-30); Chloride 104 mmol/L (98-107); Glucose 131 mg/dL (74-99); Magnesium 1.8 mg/dL (1.6-2.3); Non-African American GFR(CKD) >90 (>60 ml/min/1.73 sqM); Potassium 3.8 mmol/L (3.5-5.1); Sodium 137 mmol/L (137-145); Total Bilirubin 0.6 mg/dL (0.2-1.3); Total Protein 6.7 g/dL (6.3-8.2)
[2020-10-06 21:16] LABS: D-Dimer 0.37 mg/L FEU (<0.60); Partial Thromboplastin Time 22.4 sec (22.0-30.0); Prothrombin Time 10.3 sec (9.0-12.0)
[2020-10-06] MEDS ORDERED: NITROGLYCERIN SL TABS 0.4 MG TAB SUBLINGUAL PRN (22:05)
[2020-10-06] MEDS ORDERED: MELATONIN 5 MG TABLET PO SCH (23:15)
[2020-10-07] MEDS: NITROGLYCERIN OINT 1 INCH/GM PACKET TOPICAL SCH ×2 (00:59→06:09)
[2020-10-07 04:28] LABS: Cholesterol 143 mg/dL (<200); HDL Cholesterol 32 mg/dL (40-60); LDL Cholesterol,Calculated 80 mg/dL (0-99); Triglycerides 154 mg/dL (<150)
[2020-10-07 08:43] VITALS: BP 188/58; PULSE 61; TEMP 97.6
[2020-10-07] MEDS ORDERED: atenoloL 25 MG TAB PO SCH (09:00)
[2020-10-07] MEDS ORDERED: LOSARTAN 50 MG TAB PO SCH (09:00)
[2020-10-07] MEDS ORDERED: ASPIRIN 325 MG TAB PO SCH (09:00)
[2020-10-07] MEDS ORDERED: TESTOSTERONE CYPIONATE 200 MG/ML 1ML VIAL IM SCH (09:00)
[2020-10-07] MEDS ORDERED: ZINC SULFATE 220 MG CAP PO SCH (09:00)
[2020-10-07] MEDS ORDERED: MULTIVITAMINS, THERA 1 EACH TAB PO SCH (09:00)
[2020-10-07] MEDS ORDERED: FOLIC ACID-VIT B COMPLEX-VIT C 1 CAP PO SCH (09:00)
[2020-10-07] MEDS ORDERED: ASCORBIC ACID 500 MG TAB PO SCH (09:00)
[2020-10-07] MEDS ORDERED: ANASTROZOLE 1 MG TAB PO SCH (09:00)
--- NOTE | 2020-10-07 10:19 | P.CRDCN ---
History of Present Illness Consult date: 10/07/20 History of present illness: CHIEF COMPLAINT: Chest pain HISTORY OF PRESENT ILLNESS: This is a 40-year-old male with a past medical history significant for hypertension and obesity. 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 We have been asked to see the patient in consultation for chest pain. Patient examined this morning at the bedside in the emergency room. Patient states he tested positive for Covid on 10/04/2020. Patient presented to the hospital secondary to left-sided chest pain. 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 The patient denies any radiation of the pain. He denies any shortness of breath. Denies nausea or vomiting. Denies dizziness or lightheadedness. Patient denies increased pain with deep inspiration. He does report tenderness upon palpation of the left side of his chest. Patient underwent a stress test in 2016 which was negative for reversible ischemia. DIAGNOSTICS: EKG reveals sinus rhythm with no signs of acute ischemia Chest xray minimal chronic infiltrate left lung basilar to old exam. Normal heart. Laboratory data: WBC 8.0. Hemoglobin 16.2. Platelet count 287. D-dimer 0.37. Sodium 137. Potassium 3.8. BUN 16. Creatinine 0.73. Magnesium 1.8. Troponin negative 3. Current home cardiac medications include aspirin 325 mg daily, atenolol 25 mg daily, losartan 100 mg daily, hydrochlorothiazide 25 mg daily REVIEW OF SYSTEMS: At the time of my exam: CONSTITUTIONAL: Denies fever or chills. HEENT: Denies blurred vision, vision changes, or eye pain. Denies hemoptysis CARDIOVASCULAR: Denies chest pain, orthopnea, PND or palpitations RESPIRATORY: No shortness of breath. GASTROINTESTINAL: Denies abdominal pain. Denies nausea or vomiting. HEMATOLOGIC: Denies bleeding disorders. GENITOURINARY: Denies any blood in urine. SKIN: Denies pruitis. Denies rash. PHYSICAL EXAM: VITAL SIGNS: Reviewed. GENERAL: Well-developed in no acute distress. HEENT: Head is normocephalic. Pupils are equal, round. Sclerae anicteric. Mucous membranes of the mouth are moist. Neck supple. No JVD or thyromegaly LUNGS: Respirations even and unlabored. Lungs essentially clear to auscultation bilaterally. HEART: Regular rate and rhythm. S1 and S2 heard. ABDOMEN: Soft. Nondistended. Nontender. EXTREMITIES: Normal range of motion. No clubbing or cyanosis. Peripheral pulses intact. No lower extremity edema NEUROLOGIC: Awake and alert. Oriented x 3. ASSESSMENT: Chest pain, troponins negative 3 Acute Covid 19 Hypertension Morbid obesity: BMI 62.8 PLAN: An acute coronary event has been ruled out Resume home cardiac medications Obtain 2-D echo to assess cardiac structure and function Further recommendations pending patient's course Nurse practitioner note has been reviewed by physician. Signing provider agrees with the documented findings, assessment, and plan of care. Past Medical History Past Medical History: Hypertension, Sleep Apnea/CPAP/BIPAP Additional Past Medical History / Comment(s): Rotator Cuff injury, negative stress test 2013 History of Any Multi-Drug Resistant Organisms: MRSA Date of last positivie culture/infection: 2007 MDRO Source:: Throat Past Surgical History: Orthopedic Surgery Additional Past Surgical History / Comment(s): Rt knee arthroscopy; colonoscopy 2009; rt rotator cuff repair, Past Psychological History: No Psychological Hx Reported Smoking Status: Former smoker Past Alcohol Use History: Rare Past Drug Use History: None Reported - Past Family History Father Family Medical History: Cancer, Hypertension Mother Family Medical History: No Reported History Medications and Allergies Home Medications Medication Instructions Recorded Confirmed Type Anastrozole 1 mg PO DAILY 10/06/20 10/06/20 History Ascorbic Acid [Vitamin C] 500 mg PO BID 10/06/20 10/06/20 History Aspirin 325 mg PO DAILY 10/06/20 10/06/20 History Cholecalciferol [Vitamin D3 (25 5,000 unit PO DAILY 10/06/20 10/06/20 History Mcg = 1000 Iu)] Losartan Potassium 100 mg PO DAILY 10/06/20 10/06/20 History Melatonin 5 mg PO HS 10/06/20 10/06/20 History Multivitamins, Thera [Multivitamin 1 tab PO DAILY 10/06/20 10/06/20 History (formulary)] Testosterone Cypionate 200 mg IM TU 10/06/20 10/06/20 History [Depo-Testosterone] Vitamin B Complex 1 cap PO DAILY 10/06/20 10/06/20 History Zinc 50 mg PO DAILY 10/06/20 10/06/20 History atenoloL [Atenolol] 25 mg PO DAILY 10/06/20 10/06/20 History hydroCHLOROthiazide 25 mg PO DAILY 10/06/20 10/06/20 History Allergies Allergy/AdvReac Type Severity Reaction Status Date / Time Iodine and Iodide Containing Allergy Nausea & Verified 10/06/20 22:12 Produc Vomiting Physical Exam Vitals: Vital Signs Temp Pulse Pulse Resp BP BP Pulse Ox 10/07/20 08:42 97.6 F 61 17 188/58 97 10/07/20 03:00 69 16 147/83 98 10/07/20 02:00 70 19 138/80 97 10/07/20 01:00 69 17 150/92 97 10/07/20 00:00 68 15 136/82 97 10/06/20 23:01 73 18 134/86 97 10/06/20 23:00 70 17 118/61 98 10/06/20 22:01 74 18 109/99 98 10/06/20 22:00 119/80 98 10/06/20 21:20 69 18 150/84 94 L 10/06/20 21:00 71 20 132/81 96 10/06/20 20:58 22 10/06/20 20:16 98.7 F 63 20 181/105 96 Intake and Output 10/06/20 10/07/20 10/07/20 22:59 06:59 14:59 Other: # Voids 1 Weight 204.117 kg Results 10/06/20 20:54 10/06/20 20:54 Cardiac Enzymes 10/06/20 10/06/20 10/06/20 Range/Units 20:54 20:54 23:53 AST 32 (17-59) U/L Troponin I <0.012 0.013 (0.000-0.034) ng/mL 10/07/20 Range/Units 03:20 AST (17-59) U/L Troponin I <0.012 (0.000-0.034) ng/mL Coagulation 10/06/20 Range/Units 20:54 PT 10.3 (9.0-12.0) sec APTT 22.4 (22.0-30.0) sec Lipids 10/07/20 Range/Units 03:20 Triglycerides 154 H (<150) mg/dL Cholesterol 143 (<200) mg/dL HDL Cholesterol 32 L (40-60) mg/dL CBC 10/06/20 Range/Units 20:54 WBC 8.0 (3.8-10.6) k/uL RBC 5.75 (4.30-5.90) m/uL Hgb 16.2 (13.0-17.5) gm/dL Hct 48.6 (39.0-53.0) % Plt Count 287 (150-450) k/uL Comprehensive Metabolic Panel 10/06/20 Range/Units 20:54 Sodium 137 (137-145) mmol/L Potassium 3.8 (3.5-5.1) mmol/L Chloride 104 (98-107) mmol/L Carbon Dioxide 29 (22-30) mmol/L BUN 16 (9-20) mg/dL Creatinine 0.73 (0.66-1.25) mg/dL Glucose 131 H (74-99) mg/dL Calcium 9.1 (8.4-10.2) mg/dL AST 32 (17-59) U/L ALT 37 (4-49) U/L Alkaline Phosphatase 55 (38-126) U/L Total Protein 6.7 (6.3-8.2) g/dL Albumin 3.6 (3.5-5.0) g/dL Current Medications Generic Name Dose Route Start Last Admin Trade Name Freq PRN Reason Stop Dose Admin Anastrozole 1 mg 10/07/20 09:00 10/07/20 07:55 Anastrozole 1 Mg Tab PO Not Given DAILY [facility] Ascorbic Acid 500 mg 10/07/20 09:00 10/07/20 07:56 Ascorbic Acid 500 Mg Tab PO Not Given BID [facility] Atenolol 25 mg 10/07/20 09:00 10/07/20 07:56 Atenolol 25 Mg Tab PO Not Given DAILY [facility] Losartan Potassium 100 mg 10/07/20 09:00 10/07/20 07:56 Losartan 50 Mg Tab PO Not Given DAILY [facility] Melatonin 5 mg 10/06/20 23:15 10/07/20 00:38 Melatonin 5 Mg Tablet PO Not Given HS [facility] Multivit/Ca Carb/B Cmplx/FA/Prenat 1 each 10/07/20 09:00 10/07/20 07:56 Folic Acid-Vit B Complex-Vit C 1 Cap PO Not Given DAILY [facility] Multivitamins 1 each 10/07/20 09:00 10/07/20 07:56 Multivitamins, Thera 1 Each Tab PO Not Given DAILY [facility] Nitroglycerin 0.4 mg 10/06/20 22:05 Nitroglycerin Sl Tabs 0.4 Mg Tab SUBLINGUAL Q5M PRN Chest Pain Testosterone Cypionate 200 mg 10/07/20 09:00 10/07/20 09:06 Testosterone Cypionate 200 Mg/Ml 1ml Vial IM Not Given TU [facility] Zinc Sulfate 220 mg 10/07/20 09:00 10/07/20 07:56 Zinc Sulfate 220 Mg Cap PO Not Given DAILY [facility] Intake and Output 10/06/20 10/07/20 10/07/20 22:59 06:59 14:59 Other: # Voids 1 Weight 204.117 kg 10/06/20 20:54 10/06/20 20:54
[2020-10-07 10:59] VITALS: RESP 18
--- NOTE | 2020-10-07 12:00 | ECHOF ---
Referral Reason:LV function, chest pain MEASUREMENTS -------- HEIGHT: 180.3 cm WEIGHT: 204.1 kg BP: 173/107 RVIDd: 3.1 cm (< 3.3) IVSd: 1.5 cm (0.6 - 1.1) LVIDd: 5.0 cm (3.9 - 5.3) LVPWd: 1.0 cm (0.6 - 1.1) IVSs: 1.8 cm LVIDs: 3.4 cm LVPWs: 2.0 cm Ao Diam: 4.0 cm (2.0 - 3.7) AV Cusp: 2.7 cm (1.5 - 2.6) MV EXCURSION: 16.577 mm (> 18.000) MV EF SLOPE: 66 mm/s (70 - 150) EPSS: 1.4 cm FINDINGS -------- This was a technically difficult study with suboptimal views. There is moderate concentric left ventricular hypertrophy. Overall left ventricular systolic functi on is normal with, an EF between 55 - 60 %. The right ventricle is normal in size. The left atrium was not well visualized. The right atrium was not well visualized. 5.0mg of Lumason was utilized for enhancement of images The aortic valve was not well visualized. The mitral valve was not well visualized. No mitral regurgitation. The tricuspid valve was not well visualized. Trace tricuspid regurgitation present. Unable to est imate RVSP due to inadequate TR jet spectral doppler profile. There is no pulmonic regurgitation present. The aortic root size is normal. IVC Not well visulized. There is no pericardial effusion. CONCLUSIONS -------- 1. There is moderate concentric left ventricular hypertrophy. 2. Overall left ventricular systolic function is normal with, an EF between 55 - 60 %. 3. Trace tricuspid regurgitation present. [employer] DEAN: Zaida Ivory RDCS
--- NOTE | 2020-10-07 21:01 | P.HPIM ---
History of Present Illness H&P Date: 10/07/20 Chief Complaint: Chest discomfort History of presenting complaint: This is a very pleasant [address] Juancho Ruiz. Patient's had tested positive for COVID. Patient also went to get tested. Results came back on October 04 and he tested positive for COVID. Patient had minimal symptoms. No change in his taste or smell. He noticed some chest tightness off and on. That was across. No fever no chills. Slight decrease in appetite.. 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 The pain is intermittent does not radiate. No dizziness or lightheadedness. Review of systems: GEN.: None EYES: None HEENT: None NECK: None RESPIRATORY: As above CARDIOVASCULAR: As above GASTROINTESTINAL: None GENITOURINARY: None MUSCULOSKELETAL: None LYMPHATICS: None HEMATOLOGICAL: None PSYCHIATRY: None NEUROLOGICAL: None Past medical history to include: Obstructive sleep apnea uses CPAP, hypertension, right rotator cuff injury Social history: . Alcohol rarely. 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 EYES: Pupils equal. Conjunctiva normal. HEENT: External appearance of nose and ears normal, oral cavity grossly normal. NECK: JVD not raised; masses not palpable. HEART: First and second heart sounds are normal; no edema. LUNGS: Respiratory rate normal; clear to auscultation. ABDOMEN: Soft, nontender, liver spleen not palpable, no masses palpable. PSYCH: Alert and oriented x3; mood and affect normal. NEUROLOGICAL: Cranial nerves grossly intact; no facial asymmetry, power and sensation grossly intact. LYMPHATICS: No lymph nodes palpable in the axilla and neck INVESTIGATIONS, reviewed in the clinical context: White count 8 hemoglobin 16.2 platelets 287 d-dimer 0.37 potassium 3.8 creatinine 0.73 Troponin I 3 negative LDL 80 EKG tracing personally reviewed by me-normal sinus rhythm with some nonspecific findings Chest x-ray film personally reviewed by me-questionable infiltrate Assessment: -Intermittent chest pain. Bilateral. Not related to exertion. Could be from mild COVID 19. -COVID 19 mild pneumonitis possible. Patient's pulse ox is good. No leukopenia. D-dimer is normal. There is no indication for steroids. -Morbid obesity BMI 62.8 -Obstructive sleep apnea uses CPAP machine -Hypotensive still started on his him -Essential hypertension Plan: Cardiology was consulted. 2-D echocardiogram. Home medications to continue. Pulse ox was monitored.. Patient may be able to be discharged home. Past Medical History Past Medical History: Hypertension, Sleep Apnea/CPAP/BIPAP Additional Past Medical History / Comment(s): Rotator Cuff injury, negative stress test 2013 History of Any Multi-Drug Resistant Organisms: MRSA Date of last positivie culture/infection: 2007 MDRO Source:: Throat Past Surgical History: Orthopedic Surgery Additional Past Surgical History / Comment(s): Rt knee arthroscopy; colonoscopy 2009; rt rotator cuff repair, Past Psychological History: No Psychological Hx Reported Smoking Status: Former smoker Past Alcohol Use History: Rare Past Drug Use History: None Reported - Past Family History Father Family Medical History: Cancer, Hypertension Mother Family Medical History: No Reported History Medications and Allergies Home Medications Medication Instructions Recorded Confirmed Type Anastrozole 1 mg PO DAILY 10/06/20 10/06/20 History Ascorbic Acid [Vitamin C] 500 mg PO BID 10/06/20 10/06/20 History Cholecalciferol [Vitamin D3 (25 5,000 unit PO DAILY 10/06/20 10/06/20 History Mcg = 1000 Iu)] Losartan Potassium 100 mg PO DAILY 10/06/20 10/06/20 History Melatonin 5 mg PO HS 10/06/20 10/06/20 History Multivitamins, Thera [Multivitamin 1 tab PO DAILY 10/06/20 10/06/20 History (formulary)] Testosterone Cypionate 200 mg IM TU 10/06/20 10/06/20 History [Depo-Testosterone] Vitamin B Complex 1 cap PO DAILY 10/06/20 10/06/20 History Zinc 50 mg PO DAILY 10/06/20 10/06/20 History atenoloL [Atenolol] 25 mg PO DAILY 10/06/20 10/06/20 History hydroCHLOROthiazide 25 mg PO DAILY 10/06/20 10/06/20 History Allergies Allergy/AdvReac Type Severity Reaction Status Date / Time Iodine and Iodide Containing Allergy Nausea & Verified 10/06/20 22:12 Produc Vomiting Physical Exam Vitals: Vital Signs Temp Pulse Pulse Resp BP BP Pulse Ox 10/07/20 08:42 97.6 F 61 17 188/58 97 10/07/20 03:00 69 16 147/83 98 10/07/20 02:00 70 19 138/80 97 10/07/20 01:00 69 17 150/92 97 10/07/20 00:00 68 15 136/82 97 10/06/20 23:01 73 18 134/86 97 10/06/20 23:00 70 17 118/61 98 10/06/20 22:01 74 18 109/99 98 10/06/20 22:00 119/80 98 10/06/20 21:20 69 18 150/84 94 L 10/06/20 21:00 71 20 132/81 96 10/06/20 20:58 22 10/06/20 20:16 98.7 F 63 20 181/105 96 Intake and Output 10/06/20 10/07/20 10/07/20 22:59 06:59 14:59 Other: # Voids 1 Weight 204.117 kg Results CBC & Chem 7: 10/06/20 20:54 10/06/20 20:54 Labs: Abnormal Lab Results - Last 24 Hours (Table) 10/06/20 10/07/20 Range/Units 20:54 03:20 Glucose 131 H (74-99) mg/dL Triglycerides 154 H (<150) mg/dL HDL Cholesterol 32 L (40-60) mg/dL
--- NOTE | 2020-10-07 21:06 | P.DS ---
Providers Date of admission: 10/06/20 22:05 Expected date of discharge: 10/07/20 Attending physician: Carlo Sosa Consults: 10/06/20 22:05 Consult Physician Urgent Consulting Provider: Mao Olivia Consult Reason/Comments: cp Do you want consulting provider notified?: Yes Primary care physician: Juancho Ruiz [facility] Course: Chief Complaint: Chest discomfort Hospital course: This is a very pleasant [address] Juancho Ruiz. Patient's had tested positive for COVID. Patient also went to get tested. Results came back on October 04 and he tested positive for COVID. Patient had minimal symptoms. No change in his taste or smell. He noticed some chest tightness off and on. That was across. No fever no chills. Slight decrease in appetite.. 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 The pain is intermittent does not radiate. No dizziness or lightheadedness. Patient is felt to have mild COVID 19 pneumonitis. Pulse ox is good. No fever. No leukopenia. No indication steroids. Discussed with welder explosion Dr. Dr. Romero. Cleared for discharge. Patient told to return if any symptoms or to get worse discussed with the patient. Maintain quarantine. Consultation: Dr. Stefan Santos from [facility] emergency department in Physical examination: VITAL SIGNS: 98.7, 63, 70, 132/81, 96% room air] GENERAL: BMI 62.8, sitting up, comfortable. EYES: Pupils equal. Conjunctiva normal. NECK: JVD not raised; masses not palpable. HEART: First and second heart sounds are normal; no edema. LUNGS: Respiratory rate normal; clear to auscultation. ABDOMEN: Soft, nontender, liver spleen not palpable, no masses palpable. PSYCH: Alert and oriented x3; mood and affect normal. INVESTIGATIONS, reviewed in the clinical context: White count 8 hemoglobin 16.2 platelets 287 d-dimer 0.37 potassium 3.8 creatinine 0.73 Troponin I 3 negative LDL 80 EKG tracing personally reviewed by me-normal sinus rhythm with some nonspecific findings Chest x-ray film personally reviewed by me-questionable infiltrate 2-D echocardiogram-moderate concentric LVH. EF 55-60%. Assessment: -Intermittent chest pain. Bilateral. Not related to exertion. Could be from mild COVID 19. [place] to be noncardiac. -COVID 19 mild pneumonitis possible. Patient's pulse ox is good. No leukopenia. D-dimer is normal. There is no indication for steroids. -Morbid obesity BMI 62.8 -Obstructive sleep apnea uses CPAP machine -Hypo-testosteronism -Essential hypertension -Hypertensive heart disease - Disposition: Home Patient Condition at Discharge: Stable Plan - Discharge Summary Discharge Rx Participant: No New Discharge Prescriptions: Continue Zinc 50 mg PO DAILY Vitamin B Complex 1 cap PO DAILY Melatonin 5 mg PO HS Ascorbic Acid [Vitamin C] 500 mg PO BID atenoloL [Atenolol] 25 mg PO DAILY Multivitamins, Thera [Multivitamin (formulary)] 1 tab PO DAILY Losartan Potassium 100 mg PO DAILY Cholecalciferol [Vitamin D3 (25 Mcg = 1000 Iu)] 5,000 unit PO DAILY hydroCHLOROthiazide 25 mg PO DAILY Anastrozole 1 mg PO DAILY Testosterone Cypionate [Depo-Testosterone] 200 mg IM TU Discontinued Aspirin 325 mg PO DAILY Discharge Medication List Anastrozole 1 mg PO DAILY 10/06/20 [History] Ascorbic Acid [Vitamin C] 500 mg PO BID 10/06/20 [History] Cholecalciferol [Vitamin D3 (25 Mcg = 1000 Iu)] 5,000 unit PO DAILY 10/06/20 [History] Losartan Potassium 100 mg PO DAILY 10/06/20 [History] Melatonin 5 mg PO HS 10/06/20 [History] Multivitamins, Thera [Multivitamin (formulary)] 1 tab PO DAILY 10/06/20 [History] Testosterone Cypionate [Depo-Testosterone] 200 mg IM TU 10/06/20 [History] Vitamin B Complex 1 cap PO DAILY 10/06/20 [History] Zinc 50 mg PO DAILY 10/06/20 [History] atenoloL [Atenolol] 25 mg PO DAILY 10/06/20 [History] hydroCHLOROthiazide 25 mg PO DAILY 10/06/20 [History] Follow up Appointment(s)/Referral(s): Juancho Ruiz MD [Primary Care Provider] - 1 Week Sammy Santos MD [STAFF PHYSICIAN] - 1 Week Patient Instructions/Handouts: Chest Pain (DC), Obesity (GEN) Discharge Disposition: HOME SELF-CARE
[2020-10-08] MEDS ORDERED: hydroCHLOROthiazide 25 MG TAB PO SCH (09:00)
== END 2020-10-07 13:37 | disposition home or self-care (01) ==
LOC: EC 20:13 → 1SOBS 22:05
PROVIDERS: ADMIT Hospitalist; ATTEND Hospitalist
DX: R07.89 Other chest pain (principal); U07.1 COVID-19; I11.9 Hypertensive heart disease without heart failure; E66.01 Morbid (severe) obesity due to excess calories; Z68.44 Body mass index [BMI] 60.0-69.9, adult; G47.33 Obstructive sleep apnea (adult) (pediatric); I95.9 Hypotension, unspecified; E29.1 Testicular hypofunction; Z91.048 Other nonmedicinal substance allergy status; Z99.89 Dependence on other enabling machines and devices; Z86.14 Personal history of Methicillin resistant Staphylococcus aureus infection; Z87.891 Personal history of nicotine dependence; Z79.811 Long term (current) use of aromatase inhibitors; Z79.899 Other long term (current) drug therapy; Z79.82 Long term (current) use of aspirin; Z82.49 Family history of ischemic heart disease and other diseases of the circulatory system; Z80.9 Family history of malignant neoplasm, unspecified
CPT/HCPCS: 99285; 36415; 93005 ×2; 93306; 85379; 80061; 80053; 83735; 84484 ×2; 85025; 85610; 85730; 71046; G0378 ×2; Q9950

== ENCOUNTER → 2020-10-23 | Outpatient (CLI) | payer OTHER ==
--- NOTE | 2020-10-23 16:30 | CONS ---
CONSULTATION This is a 40-year-old gentleman who has been evaluated in the sleep center for re- evaluation for obstructive sleep apnea-hypopnea syndrome. HISTORY OF PRESENT ILLNESS/SLEEP-WAKE EVALUATION: Patient's usual sleep schedule on working days is from 10 or 11 p.m. to 7:30 or 8 a.m. on weekdays and to 5 or 6 a.m. on weekends. Sometimes he has problems with falling asleep, but usually not more than 30 minutes. No TV in bedroom. He sleeps on his back and side position. He wakes up from sleep 1-2 times while he is using his CPAP equipment. Sometimes he may feel sleepy during the day. He may occasionally take naps. [place] Sleepiness Scale is on borderline at 10. I checked the patient's CPAP unit. CPAP pressure is 15 cm of water. Usage is 100% of nights, and 22/30 nights for more than 4 hours. Average usage 5.9 hours per night. Leak is 12 L/minute. Apnea-hypopnea index 0.2, which is perfect. PAST MEDICAL HISTORY: Recently positive for COVID about 3 weeks ago, hypertension, low testosterone level. MEDICATIONS: 1. Anastrozole 1 mg once a day. 2. Atenolol 25 mg once a day. 3. Hydrochlorothiazide 25 mg once a day. 4. Losartan 100 mg once a day. 5. Testosterone once a week. PAST SURGICAL HISTORY: Arthroscopic right knee surgery in 1999, right rotator cuff repair in 2014. SOCIAL HISTORY: Negative for using alcohol. Quit smoking 6 years ago. PHYSICAL EXAMINATION: GENERAL: A pleasant gentleman without distress. VITAL SIGNS: BP 166/96, HR 68, RR 15, height 5 feet 11 inches, weight 448, temperature 98.8, oxygen saturation at room air 96%. HEENT: PERRLA, EOMI. Evaluation of oropharynx showed tongue protrudes midline. Low position of soft palate. NECK: Supple. No JVD. Thyroid is not palpable. Wide neck; 22-1/2 inches in circumference. LUNGS: Clear to percussion and to auscultation. Good air exchange. No wheezing or rhonchi. HEART: S1, S2 regular. No murmurs, gallops or rubs. ABDOMEN: Obese. EXTREMITIES: No clubbing or cyanosis. KINDERGARTNER: Awake, alert, and oriented X3. Cranial nerves 2 to 7 intact. There is no fasciculation or atrophy. noted. No focal deficits observed. IMPRESSION: 1. Obstructive sleep apnea-hypopnea syndrome. Patient demonstrated a compliance with CPAP treatment, normal respiration on CPAP machine, benefitting from treatment. 2. History of recent COVID-19 infection. 3. Obesity. 4. Hypertension. 5. History of low testosterone level. 6. Status post right knee arthroscopic surgery. 7. Status post right rotator cuff repair. PLAN: 1. Prescription for all necessary CPAP supplies, including a Simplus medium-sized full- face mask, tube, filters. 2. Continue to use CPAP equipment every night for the whole night. 3. Losing weight. 4. Precautions related to driving. No driving if feeling any sleepiness. 5. Repeat testing for COVID-19. Thank you very much for allowing me to participate in the management of your patient. Thank you very much for allowing me to participate in the management of your patient. Sincerely, Xander Brannon MD, PhD, FAASM Diplomat of [place] [employer] [place] [employer] [facility] MMODL / IJN: [id number] /
== END | disposition home or self-care (01) ==
LOC: SLEEP 15:05
PROVIDERS: ATTEND Internal Medicine
DX: G47.33 Obstructive sleep apnea (adult) (pediatric) (principal); I10 Essential (primary) hypertension; E66.9 Obesity, unspecified; Z98.890 Other specified postprocedural states; Z99.89 Dependence on other enabling machines and devices; Z79.890 Hormone replacement therapy; Z86.16 Personal history of COVID-19; Z79.811 Long term (current) use of aromatase inhibitors
CPT/HCPCS: 99211

== ENCOUNTER 2022-04-19 08:23 | Observation (INO) | payer MEDICAID, OTHER ==
[2022-04-19] MEDS ORDERED: ASPIRIN 81 MG PO STA (08:59)
--- NOTE | 2022-04-19 09:22 | XR ---
EXAMINATION TYPE: XR chest 2V DATE OF EXAM: 04/19/2022 COMPARISON: 10/06/2020 HISTORY: Chest pain TECHNIQUE: Frontal and lateral views of the chest are obtained. FINDINGS: There is no focal air space opacity. No evidence for pneumothorax. No pleural effusion. The cardiac silhouette size is within normal limits. The osseous structures are grossly intact. IMPRESSION: 1. No acute cardiopulmonary process.
[2022-04-19 09:23] LABS: Basophils # (A) 0.1 k/uL (0-0.2); Basophils % (A) 1 %; Eosinophils # (A) 0.3 k/uL (0-0.7); Eosinophils % (A) 3 %; HCT 46.6 % (39.0-53.0); HGB 15.2 gm/dL (13.0-17.5); Lymphocytes # (A) 2.1 k/uL (1.0-4.8); Lymphocytes % (A) 20 %; MCHC 32.5 g/dL (31.0-37.0); Mean Platelet Volume 8.6; Monocytes # (A) 0.8 k/uL (0-1.0); Monocytes % (A) 7 %; Neutrophils # (A) 7.1 k/uL (1.3-7.7); Neutrophils % (A) 67 %; Platelet Count 289 k/uL (150-450); RBC 5.23 m/uL (4.30-5.90); WBC 10.6 k/uL (3.8-10.6)
[2022-04-19 09:36] LABS: ALT 23 U/L (4-49); AST 24 U/L (17-59); African American GFR (CKD) >90 (>60 ml/min/1.73 sqM); Albumin 3.4 g/dL (3.5-5.0); Alkaline Phosphatase 68 U/L (38-126); Anion Gap 4 mmol/L; Blood Urea Nitrogen 11 mg/dL (9-20); Calcium 8.7 mg/dL (8.4-10.2); Carbon Dioxide 29 mmol/L (22-30); Chloride 108 mmol/L (98-107); Glucose 150 mg/dL (74-99); Non-African American GFR(CKD) >90 (>60 ml/min/1.73 sqM); Potassium 3.9 mmol/L (3.5-5.1); Sodium 141 mmol/L (137-145); Total Bilirubin 0.4 mg/dL (0.2-1.3); Total Protein 6.5 g/dL (6.3-8.2)
[2022-04-19 09:38] LABS: INR 0.9 (<1.2); Partial Thromboplastin Time 23.3 sec (22.0-30.0); Prothrombin Time 10.1 sec (9.0-12.0)
--- NOTE | 2022-04-19 10:02 | ED ---
Chest Pain HPI - General Chief Complaint: Chest Pain Stated Complaint: Chest pain,SOB Time Seen by Provider: 04/19/22 08:42 Source: patient, RN notes reviewed Mode of arrival: ambulatory Limitations: no limitations - History of Present Illness Initial Comments: This a 41-year-old male presents emergency Department chief complaint of chest pain shortness of breath. Patient states that pain started primary yesterday has worsened. Patient states he does have a history hypertension on multiple medications. Patient is on diabetic medications for current weight loss. Patient states that he has had stress this in the past which was negative. Patient states this pain is somewhat went to 49 the past but is not alleviating. She has taken medication with no relief. Patient denies abdominal pain no diaphoretic episodes. Patient has no history DVT or PE. Denies any leg pain or leg swelling on the usual. - Related Data Home Medications Medication Instructions Recorded Confirmed Anastrozole 1 mg PO DAILY 10/06/20 10/06/20 Ascorbic Acid [Vitamin C] 500 mg PO BID 10/06/20 10/06/20 Cholecalciferol [Vitamin D3 (25 5,000 unit PO DAILY 10/06/20 10/06/20 Mcg = 1000 Iu)] Losartan Potassium 100 mg PO DAILY 10/06/20 10/06/20 Melatonin 5 mg PO HS 10/06/20 10/06/20 Multivitamins, Thera [Multivitamin 1 tab PO DAILY 10/06/20 10/06/20 (formulary)] Testosterone Cypionate 200 mg IM TU 10/06/20 10/06/20 [Depo-Testosterone] Vitamin B Complex 1 cap PO DAILY 10/06/20 10/06/20 Zinc 50 mg PO DAILY 10/06/20 10/06/20 atenoloL 25 mg PO DAILY 10/06/20 10/06/20 hydroCHLOROthiazide 25 mg PO DAILY 10/06/20 10/06/20 Allergies Allergy/AdvReac Type Severity Reaction Status Date / Time Iodine and Iodide Containing Allergy Nausea & Verified 04/19/22 08:38 Produc Vomiting Review of Systems ROS Statement: Those systems with pertinent positive or pertinent negative responses have been documented in the HPI. ROS Other: All systems not noted in ROS Statement are negative. Past Medical History Past Medical History: Hypertension, Sleep Apnea/CPAP/BIPAP Additional Past Medical History / Comment(s): Rotator Cuff injury, negative stress test 2014 History of Any Multi-Drug Resistant Organisms: MRSA Date of last positivie culture/infection: 2007 MDRO Source:: Throat Past Surgical History: Orthopedic Surgery Additional Past Surgical History / Comment(s): Rt knee arthroscopy; colonoscopy 2009; rt rotator cuff repair, Past Psychological History: No Psychological Hx Reported Smoking Status: Former smoker Past Alcohol Use History: Rare Past Drug Use History: None Reported - Past Family History Father Family Medical History: Cancer, Hypertension Mother Family Medical History: No Reported History General Exam Limitations: no limitations General appearance: alert, in no apparent distress Head exam: Present: atraumatic, normocephalic, normal inspection Eye exam: Present: normal appearance, PERRL, EOMI. Absent: scleral icterus, conjunctival injection, periorbital swelling ENT exam: Present: normal exam, normal oropharynx, mucous membranes moist Neck exam: Present: normal inspection, full ROM. Absent: tenderness, meningismus, lymphadenopathy Respiratory exam: Present: normal lung sounds bilaterally. Absent: respiratory distress, wheezes, rales, rhonchi, stridor Cardiovascular Exam: Present: regular rate, normal rhythm, normal heart sounds. Absent: systolic murmur, diastolic murmur, rubs, gallop, clicks GI/Abdominal exam: Present: soft, normal bowel sounds. Absent: distended, tenderness, guarding, rebound, rigid Course Vital Signs 04/19/22 08:36 Temperature 98.1 F Pulse Rate 91 Respiratory 20 Rate Blood Pressure 166/100 O2 Sat by Pulse 96 Oximetry Chest Pain MDM - [facility] EKG chest x-ray and labs were performed. Patient has multiple risk factors for coronary disease. Patient will be admitted for rule out including repeat troponin, cardiology evaluation. Disposition Clinical Impression: Chest pain Disposition: ADMITTED IP TO THIS HOSP Condition: Fair Referrals: Juancho Ruiz MD [Primary Care Provider] - 1-2 days Time of Disposition: 10:27
[2022-04-19] MEDS ORDERED: NITROGLYCERIN SL TABS 0.4 MG TAB SUBLINGUAL PRN (10:28)
--- NOTE | 2022-04-19 12:58 | P.HPIM ---
History of Present Illness H&P Date: 04/19/22 History of Presenting Illness: Patient is a very pleasant 41-year-old male with a past medical history of hypertension and obesity. He presented to the emergency department with a chief complaint of chest pain. Patient reports pain began yesterday evening upon getting up and getting ready for work, as he works midnight. Patient reports he thought maybe he just pulled a muscle sleeping the wrong way or something and took a muscle relaxer and some Motrin and went back to bed, patient reports upon awakening pain was initially gone but seemed to return with any exertion. Андрей fernandez reports initially pain was e completely across his anterior chest but states this morning pain has remained to left anterior chest and seems to radiate into his back. He described this pain as an achiness/heaviness and reports it is worse with any exertion and has been accompanied by exertional dyspnea. In addition to chest pain and exertional dyspnea patient also reports that he has had a persistent headache to the left temporal region of his head 2 weeks. Patient reports his made him come to the hospital because she was concerned especially with his significant family history of CVA and [place] resulting in in both his father and grandfather prior to the age of 55. Patient denies having any dizziness, lightheadedness, changes in vision or hearing, diaphoresis, chills, palpitations, shortness of breath at rest, abdominal pain, nausea, vomiting, or experiencing any numbness/tingling/weakness/swelling in his extremities. he reports that he is currently on hormone replacements estrogen and testosterone as well as currently on Ozempic for weight loss, denies history of hyperlipidemia or diabetes mellitus. Patient underwent full evaluation in the emergency department. CBC, coags, and CMP were unremarkable. Troponin less than 0.012. ProBNP 12. EKG showing normal sinus rhythm and 92 bpm with no noted T-wave or ST abnormalities showing no signs of acute ischemia. Patient admitted under our services with consultation to cardiology. Review of systems: Pertinent positives and negatives as discussed in HPI, a complete review of systems was performed and all other systems are negative. Physical exam: Vital signs reviewed and stable. General: Nontoxic, no distress and appears stated age. Obese. Derm: Skin warm and dry, normal coloration for ethnicity. Head: Atraumatic, normocephalic and symmetric. Eyes: EOMs intact, no lid lag, and anicteric sclera Mouth: no lip lesions, mucus membranes moist Cardiovascular: regular rate and rhythm with normal S1S2, no murmur, positive posterior tibial pulses bilaterally, and cap refill < 2 seconds. Lungs: Respirations even, regular, and unlabored on room air. Lungs CTA bilaterally, no rhonchi, no rales, no wheezing, and no accessory muscle usage. Abdominal: soft, nontender to palpation, no guarding, no appreciable organomegaly Ext: ROM intact. No gross muscle atrophy, no edema, no contractures Neuro: Speech clear, face symmetrical and CN II-XII grossly intact with no noted focal neuro deficits Psych: Alert and oriented to person, place, time, and situation. Appropriate and pleasant affect. Assessment and Plan of Care: Chest pain, rule out acute coronary event -Cardiology consult, appreciate further recommendations -Telemetry monitoring -Trend troponins -Cardiac diet, NPO at midnight -Aspirin, atorvastatin, atenolol, and losartan/hydrochlorothiazide -Lipid profile with a.m. labs. -Echocardiogram Hypertension -Monitor vital signs and continue daily medication regimen with atenolol and l osartan/hydrochlorothiazide. Morbid obesity with BMI 61.4 kg/m -Hold Ozempic at this time, may resume upon discharge and continue to follow outpatient weight management program. The patient is admitted with an anticipated less than 2 midnight stay for evaluation of chest pain CODE STATUS: Full code DVT prophylaxis: Heparin Discussed with: Patient Anticipated discharge date: 1-[address]: Home A total of 45 minutes was spent on the care of this complex patient more than 50% of the time was spent in counseling and care coordination. I reviewed the documentation as provided by the YAZMIN above, who is the original author of this note. I agree with the documented assessment and plan, with the following changes: none Past Medical History Past Medical History: Hypertension, Sleep Apnea/CPAP/BIPAP Additional Past Medical History / Comment(s): Rotator Cuff injury, negative stress test 2013 History of Any Multi-Drug Resistant Organisms: MRSA Date of last positivie culture/infection: 2007 MDRO Source:: Throat Past Surgical History: Orthopedic Surgery Additional Past Surgical History / Comment(s): Rt knee arthroscopy; colonoscopy 2009; rt rotator cuff repair, Past Psychological History: No Psychological Hx Reported Smoking Status: Former smoker Past Alcohol Use History: Rare Past Drug Use History: None Reported - Past Family History Father Family Medical History: Cancer, Hypertension Mother Family Medical History: No Reported History Medications and Allergies Home Medications Medication Instructions Recorded Confirmed Type Anastrozole 1 mg PO Q48H 10/06/20 04/19/22 History Multivitamins, Thera [Multivitamin 1 tab PO DAILY 10/06/20 04/19/22 History (formulary)] Testosterone Cypionate 100 mg IM TU 10/06/20 04/19/22 History [Depo-Testosterone] atenoloL 12.5 mg PO DAILY 10/06/20 04/19/22 History Cholecalciferol (Vitamin D3) 125 mcg PO DAILY 04/19/22 04/19/22 History [Vitamin D3 (125 MCG = 5,000 IU)] Losartan/Hydrochlorothiazide 1 tab PO DAILY 04/19/22 04/19/22 History [Hyzaar 100-25 Tablet] Semaglutide [Ozempic] 0.5 mg SQ TU 04/19/22 04/19/22 History Allergies Allergy/AdvReac Type Severity Reaction Status Date / Time Iodine and Iodide Containing AdvReac Nausea & Verified 04/19/22 10:43 Produc Vomiting Physical Exam Vitals: Vital Signs Temp Pulse Resp BP Pulse Ox 04/19/22 11:56 87 18 176/93 95 04/19/22 10:28 92 18 96 04/19/22 08:36 98.1 F 91 20 166/100 96 Intake and Output 04/18/22 04/19/22 04/19/22 22:59 06:59 14:59 Other: Weight 199.581 kg Results CBC & Chem 7: 04/19/22 09:04 04/19/22 09:04 Labs: Abnormal Lab Results - Last 24 Hours (Table) 04/19/22 Range/Units 09:04 Chloride 108 H (98-107) mmol/L Glucose 150 H (74-99) mg/dL Albumin 3.4 L (3.5-5.0) g/dL
--- NOTE | 2022-04-19 13:22 | CT ---
EXAMINATION TYPE: CT brain wo con CT DLP: 1107.4 mGycm, Automated exposure control for dose reduction was used. DATE OF EXAM: 04/19/2022 1:17 PM COMPARISON: None. CLINICAL INDICATION:Male, 41 years old with history of Intractable Headache ?2 weeks, Intractable TECHNIQUE: Brain: Multiple axial CT images of the brain were obtained without IV contrast. FINDINGS: Brain: Extra-axial spaces: No abnormal extra-axial fluid collections. Ventricular system: Within normal limits Cerebral parenchyma: No acute intraparenchymal hemorrhage or mass effect. The ott-white junction is well differentiated. Cerebellum: Unremarkable. Mass effect: No evidence of midline shift. Intracranial vasculature: unremarkable Soft tissues: Normal. Calvarium/osseous structures: No depressed skull fracture. Paranasal sinuses and mastoid air cells: Mild scattered paranasal sinus disease. Visualized orbits: Orbital contents are intact. IMPRESSION: No acute intracranial process.
[2022-04-19] MEDS: HEPARIN SODIUM,PORCINE/PF 5,000 UNIT/0.5 ML SYRINGE SQ SCH ×2 (15:46→21:54)
[2022-04-19] MEDS ORDERED: ATORVASTATIN 80 MG TAB PO SCH (21:00)
--- NOTE | 2022-04-20 07:36 | CA ---
Transthoracic Echo Report Name: Akshat Melo Age: 41 Gender: M : 1980 Exam Date: 04/19/2022 13:34 Exam Location: [facility] Ht (in): 71 Wt (lb): 440 Ordering Physician: Wyatt Newsome Attending/Referring Phys: Vehicle Operator Renetta August RDCS Procedure CPT: Indications: assess structure and function of heart Cardiac Hx: Technical Quality: Technically difficult study Contrast 1: Lumason Total Dose (mL): 3 Contrast 2: Total Dose (mL): MEASUREMENTS (Male / Female) Normal Values 2D ECHO LV Diastolic Diameter PLAX 4.7 cm 4.2 - 5.9 / 3.9 - 5.3 cm LV Systolic Diameter PLAX 3.2 cm IVS Diastolic Thickness 1.6 cm 0.6 - 1.0 / 0.6 - 0.9 cm LVPW Diastolic Thickness 1.4 cm 0.6 - 1.0 / 0.6 - 0.9 cm LV Relative Wall Thickness 0.6 RV Internal Dim ED PLAX 3.6 cm LA Systolic Diameter LX 4.0 cm 3.0 - 4.0 / 2.7 - 3.8 cm M-MODE Aortic Root Diameter MM 3.7 cm MV E Point Septal Separation 1.0 cm AV Cusp Separation MM 2.1 cm DOPPLER AV Peak Velocity 84.4 cm/s AV Peak Gradient 2.8 mmHg MV Area PHT 3.0 cm??? Mitral E Point Velocity 63.5 cm/s Mitral A Point Velocity 34.5 cm/s Mitral E to A Ratio 1.8 MV Deceleration Time 253.8 ms MV E' Velocity 7.3 cm/s Mitral E to MV E' Ratio 8.7 TR Peak Velocity 241.4 cm/s TR Peak Gradient 23.3 mmHg Right Ventricular Systolic Press 28.3 mmHg FINDINGS Left Ventricle Left ventricular ejection fraction is estimated at 50 %. Left ventricular cavity size normal. Moderate concentric left ventricular hypertrophy. Right Ventricle Mild right ventricular dilatation. Right ventricular systolic pressure within normal limits. Right Atrium Normal right atrial size. Left Atrium Normal left atrial size. Mitral Valve Structurally normal mitral valve. No mitral stenosis, regurgitation or prolapse. Aortic Valve Trileaflet aortic valve. No aortic valve stenosis or regurgitation. Tricuspid Valve Trace to mild tricuspid regurgitation. Pulmonic Valve Pulmonic valve not well visualized. Pericardium Normal pericardium. No pericardial effusion. Aorta Normal size aortic root and proximal ascending aorta. CONCLUSIONS Left ventricular ejection fraction 50% Moderate LVH No mitral regurgitation Mild tricuspid regurgitation Previewed by: Dr. Jono Galvez DO (Electronically Signed) Final Date: 20 April 2022 07:36
[2022-04-20] MEDS: HEPARIN SODIUM,PORCINE/PF 5,000 UNIT/0.5 ML SYRINGE SQ SCH ×2 (08:09→17:23)
[2022-04-20] MEDS ORDERED: CHOLECALCIFEROL 125 MCG (5000 IU) TABLET PO SCH (09:00)
[2022-04-20] MEDS ORDERED: ASPIRIN 325 MG TAB PO SCH (09:00)
[2022-04-20] MEDS ORDERED: MULTIVITAMINS, THERA 1 EACH TAB PO SCH (09:00)
[2022-04-20] MEDS ORDERED: LOSARTAN-HCTZ 50-12.5 MG 1 EACH TAB PO SCH (09:00)
[2022-04-20 09:05] VITALS: RESP 14
[2022-04-20 09:28] LABS: Chol/HDL Ratio 3.31 Ratio; LDL Cholesterol,Calculated 77.6 mg/dL (0.0-131.0); VLDL Calculation 15.24 mg/dL (5.00-40.00)
[2022-04-20] MEDS ORDERED: ALPRAZolam 0.5 MG TAB PO PRN (09:58)
[2022-04-20] MEDS ORDERED: ALPRAZolam 0.25 MG TAB PO PRN (09:58)
--- NOTE | 2022-04-20 10:05 | P.CRDCN ---
History of Present Illness History of present illness: HISTORY OF PRESENTING ILLNESS This is a pleasant 41-year-old male past medical history significant for hypertension, obstructive sleep apnea with use of CPAP, former smoker. He does not follow with a television specialist. We have been asked to see in consultation for chest pain. Patient presents to the emergency department with complaints of chest pain. Patient works midnights and yesterday he woke up to get ready for work and had chest tightness across his chest, with radiation to his back. He initially thought it was a pulled muscle and took Motrin and Flexeril and went back to sleep. His pain was slightly relieved but than returned with activity. It was also aggravated by taking a deep breath. It initially started across his anterior chest, then radiated more to the left side and straight through his back. He was slightly nauseous but he states this improved with eating. He had some slight shortness of breath but not worse/new for him. Nothing relieved the pain, it went away on its own. He denies any lightheadedness, dizziness, vomiting. Denies any fever, cough, chills. Family history includes grandfather had [place] in his 50s. He is a former smoker, quit 6 years ago. He denies any illicit drug use. Occasional alcohol use. No history of diabetes, [place], Stroke, or CAD. Patient given sublingual nitro this morning with relief in chest tightness DIAGNOSTICS * EKG reveals sinus rhythm HR 92, no significant ST- T wave abnormalities to suggest ischemia * Stress Echo 2016, negative for inducible ischemia * Echo in 10/2020- 55-60%, moderate LVH, trace tricuspid regurgitation * Telemetry tracings indicate sinus mechanism * Chest xray no acute cardiopulmonary process * Laboratory reviewed, troponn negative x 3, pro BNP 12, CBC unremarkable, Sodium 141, K 3.9, BUN 11, sCr 0.83, Mag 2.0 * Current home medications include atenolol 12.5mg daily, Depo-testosterone, Semaglutide, multivitamin, Hyzaar 100-25mg daily, anastrozole. REVIEW OF SYSTEMS At the time of my exam: CONSTITUTIONAL: Denies fever or chills. CARDIOVASCULAR: + chest pain, +shortness of breath, Denies orthopnea, PND or palpitations. RESPIRATORY: Denies cough. GASTROINTESTINAL: Denies abdominal pain, diarrhea, constipation, nausea or vomiting. MUSCULOSKELETAL: Denies myalgias. NEUROLOGIC: Denies numbness, tingling, headache or weakness. ENDOCRINE: Denies fatigue, weight change, polydipsia or polyurina. GENITOURINARY: Denies burning, hematuria or urgency with micturation. HEMATOLOGIC: Denies history of anemia or bleeding. PHYSICAL EXAMINATION Blood pressure 130/86, HR 68, afebrile, saturations 90% room air CONSTITUTIONAL: No apparent distress. HEENT: Head is normocephalic. Pupils are equal, round. Sclerae anicteric. Mucous membranes of the mouth are moist. No JVD. No carotid bruit. CHEST EXAMINATION: Lungs are clear to auscultation. No chest wall tenderness is noted on palpation or with deep breathing. HEART EXAMINATION: Regular rate and rhythm. S1, S2 heard. No murmurs, gallops or rub. ABDOMEN: Soft, nontender. Positive bowel sounds. EXTREMITIES: 2+ peripheral pulses, no lower extremity edema and no calf tenderness. SKIN: warm, dry NEUROLOGIC EXAMINATION: Patient is awake, alert and oriented x3. ASSESSMENT Chest tightness, worse with activity and some relief with nitroglycerin, concer umberto for angina History of hypertension Obstructive sleep apnea Former smoker Obesity PLAN Obtain 2D echocardiogram and doppler study to assess cardiac structure and function. Plan for cardiac catheterization today with Dr. Galvez I have discussed the risks, benefits and alternative therapies for the above- mentioned procedure and for both sedation/analgesia as well as necessary blood product administration, if indicated, as they pertain to this patient. The patient has indicated understanding and acceptance of the risks and procedures discussed. Questions have been answered appropriately and he is agreeable to move forward with the above-stated procedure. Further recommendations based on clinic course Thank you kindly for this consultation. Nurse practitioner note has been reviewed by physician. Signing provider agrees with the documented findings, assessment, and plan of care. Past Medical History Past Medical History: Hypertension, Sleep Apnea/CPAP/BIPAP Additional Past Medical History / Comment(s): Rotator Cuff injury, negative stress test 2013 History of Any Multi-Drug Resistant Organisms: MRSA Date of last positivie culture/infection: 2007 MDRO Source:: Throat Past Surgical History: Orthopedic Surgery Additional Past Surgical History / Comment(s): Rt knee arthroscopy; colonoscopy 2009; rt rotator cuff repair, Past Psychological History: No Psychological Hx Reported Smoking Status: Former smoker Past Alcohol Use History: Rare Past Drug Use History: None Reported - Past Family History Father Family Medical History: Cancer, Hypertension Mother Family Medical History: No Reported History Medications and Allergies Home Medications Medication Instructions Recorded Confirmed Type Anastrozole 1 mg PO Q48H 10/06/20 04/19/22 History Multivitamins, Thera [Multivitamin 1 tab PO DAILY 10/06/20 04/19/22 History (formulary)] Testosterone Cypionate 100 mg IM TU 10/06/20 04/19/22 History [Depo-Testosterone] atenoloL 12.5 mg PO DAILY 10/06/20 04/19/22 History Cholecalciferol (Vitamin D3) 125 mcg PO DAILY 04/19/22 04/19/22 History [Vitamin D3 (125 MCG = 5,000 IU)] Losartan/Hydrochlorothiazide 1 tab PO DAILY 04/19/22 04/19/22 History [Hyzaar 100-25 Tablet] Semaglutide [Ozempic] 0.5 mg SQ TU 04/19/22 04/19/22 History Allergies Allergy/AdvReac Type Severity Reaction Status Date / Time Iodine and Iodide Containing AdvReac Nausea & Verified 04/19/22 10:43 Produc Vomiting Physical Exam Vitals: Vital Signs Temp Pulse Resp BP Pulse Ox 04/19/22 11:56 87 18 176/93 95 04/19/22 10:28 92 18 96 04/19/22 08:36 98.1 F 91 20 166/100 96 Intake and Output 04/18/22 04/19/22 04/19/22 22:59 06:59 14:59 Other: Weight 199.581 kg Results 04/19/22 09:04 04/19/22 09:04 Cardiac Enzymes 04/19/22 04/19/22 04/19/22 Range/Units 09:04 09:04 11:49 AST 24 (17-59) U/L Troponin I <0.012 <0.012 (0.000-0.034) ng/mL Coagulation 04/19/22 Range/Units 09:04 PT 10.1 (9.0-12.0) sec APTT 23.3 (22.0-30.0) sec CBC 04/19/22 Range/Units 09:04 WBC 10.6 (3.8-10.6) k/uL RBC 5.23 (4.30-5.90) m/uL Hgb 15.2 (13.0-17.5) gm/dL Hct 46.6 (39.0-53.0) % Plt Count 289 (150-450) k/uL Comprehensive Metabolic Panel 04/19/22 Range/Units 09:04 Sodium 141 (137-145) mmol/L Potassium 3.9 (3.5-5.1) mmol/L Chloride 108 H (98-107) mmol/L Carbon Dioxide 29 (22-30) mmol/L BUN 11 (9-20) mg/dL Creatinine 0.83 (0.66-1.25) mg/dL Glucose 150 H (74-99) mg/dL Calcium 8.7 (8.4-10.2) mg/dL AST 24 (17-59) U/L ALT 23 (4-49) U/L Alkaline Phosphatase 68 (38-126) U/L Total Protein 6.5 (6.3-8.2) g/dL Albumin 3.4 L (3.5-5.0) g/dL Current Medications Generic Name Dose Route Start Last Admin Trade Name Freq PRN Reason Stop Dose Admin Aspirin 325 mg 04/20/22 09:00 Aspirin 325 Mg Tab PO DAILY [facility] Atenolol 12.5 mg 04/20/22 09:00 Atenolol 12.5 Mg Tab PO DAILY [facility] Atorvastatin Calcium 80 mg 04/19/22 21:00 Atorvastatin 80 Mg Tab PO HS [facility] Cholecalciferol 125 mcg 04/20/22 09:00 Cholecalciferol 125 Mcg (5000 Iu) Tablet PO DAILY [facility] HCTZ/Losartan Potassium 2 each 04/20/22 09:00 Losartan-Hctz 50-12.5 Mg 1 Each Tab PO DAILY [facility] Heparin Sodium (Porcine) 5,000 unit 04/19/22 16:00 Heparin Sodium,Porcine/Pf 5,000 Unit/0.5 Ml Syringe SQ Q8HR [facility] Multivitamins 1 each 04/20/22 09:00 Multivitamins, Thera 1 Each Tab PO DAILY [facility] Nitroglycerin 0.4 mg 04/19/22 10:28 Nitroglycerin Sl Tabs 0.4 Mg Tab SUBLINGUAL Q5M PRN Chest Pain Intake and Output 04/18/22 04/19/22 04/19/22 22:59 06:59 14:59 Other: Weight 199.581 kg Patient Weight 04/20/22 06:59 Weight 199.581 kg 04/19/22 09:04 04/19/22 09:04
[2022-04-20] MEDS: SODIUM CHLORIDE 0.9% 1,000 ML in EMPTY BAG 1 BAG IV SCH ×2 (11:28→15:05)
[2022-04-20] MEDS ORDERED: VERAPAMIL 2.5 MG/ML 2 ML AMP ONE (13:30)
[2022-04-20] MEDS ORDERED: HEPARIN SODIUM 1,000 UN/ML (10ML VL) ONE (13:31)
[2022-04-20] MEDS ORDERED: fentaNYL (PF) 50 MCG/ML 2 ML AMP ONE (13:31)
[2022-04-20] MEDS ORDERED: IV FLUID CONTINUATION 1,000 ML IV ONE (13:45)
[2022-04-20] MEDS ORDERED: LIDOCAINE 1% INJ 10MG/ML (5 ML VIAL-PF) SQ ONE (13:47)
[2022-04-20] MEDS ORDERED: fentaNYL (PF) 50 MCG/ML 2 ML AMP IVP ONE (13:47)
[2022-04-20] MEDS ORDERED: MIDAZOLAM 2 MG/2 ML VIAL IVP ONE (13:47)
[2022-04-20] MEDS ORDERED: VERAPAMIL SYRINGE (5 MG/10 ML) INTRAARTER ONE (13:52)
[2022-04-20] MEDS ORDERED: HEPARIN SODIUM 1,000 UN/ML (10ML VL) IV ONE (13:54)
[2022-04-20] MEDS ORDERED: IOPAMIDOL-370 125ML BTL INJ ONE (14:01)
[2022-04-20] MEDS ORDERED: RX INFO: IV CONTRAST WAS GIVEN 1 EACH MISC MISCELLANE PRN (14:26)
[2022-04-20] MEDS ORDERED: SODIUM CHLORIDE 0.9% 1,000 ML IV SCH (14:30)
--- NOTE | 2022-04-20 15:08 | P.DS ---
Providers Date of admission: 04/19/22 11:03 Expected date of discharge: 04/20/22 Attending physician: Esthela Rivera, DO Consults: 04/19/22 10:28 Consult Physician Urgent Consulting Provider: Jono Galvez Consult Reason/Comments: Chest pain Do you want consulting provider notified?: Yes Primary care physician: Juancho Aly [facility] Course: Discharge Diagnosis: Chest pain, acute coronary event ruled out. Hypertension. Monitor vital signs and continue daily medication regimen with atenolol and losartan/hydrochlorothiazide. Morbid obesity with BMI 61.4 kg/m. Continue Ozempic follow outpatient weight management program. Hospital Course: Patient is a very pleasant 41-year-old male with a past medical history of hypertension and obesity. He presented to the emergency department with a chief complaint of chest pain. Patient reports pain began yesterday evening upon getting up and getting ready for work, as he works midnight. Patient reports he thought maybe he just pulled a muscle sleeping the wrong way or something and took a muscle relaxer and some Motrin and went back to bed, patient reports upon awakening pain was initially gone but seemed to return with any exertion. Patient reports initially pain was e completely across his anterior chest but states this morning pain has remained to left anterior chest and seems to radiate into his back. He described this pain as an achiness/heaviness and reports it is worse with any exertion and has been accompanied by exertional dyspnea. In addition to chest pain and exertional dyspnea patient also reports that he has had a persistent headache to the left temporal region of his head 2 weeks. Patient reports his made him come to the hospital because she was concerned especially with his significant family history of CVA and [place] resulting in in both his father and grandfather prior to the age of 55. Patient denies having any dizziness, lightheadedness, changes in vision or hearing, diaphoresis, chills, palpitations, shortness of breath at rest, abdominal pain, nausea, vomiting, or experiencing any numbness/tingling/weakness/swelling in his extremities. he reports that he is currently on hormone replacements estrogen and testosterone as well as currently on Ozempic for weight loss, denies history of hyperlipidemia or diabetes mellitus. Patient underwent full evaluation in the emergency department. CBC, coags, and CMP were unremarkable. Troponin less than 0.012. ProBNP 12. EKG showing normal sinus rhythm and 92 bpm with no noted T-wave or ST abnormalities showing no signs of acute ischemia. Patient admitted under our services with consultation to cardiology. CT head was completed secondary to persistent headache [address] head negative for acute intercranial process. Troponins trended 3 all negative at less than 0.012. Lipid profile unremarkable. Echocardiogram completed revealing EF of 50% with moderate and mild tricuspid regurgitation. Patient underwent cardiac cath which was reportedly clear from any cardiovascular occlusive disease. Cardiology recommended outpatient follow-up in their office in 1-2 weeks. Patient is medically stable for discharge home, no medication changes made this hospitalization. Physical exam: Vital signs reviewed and stable. General: Nontoxic, no distress and appears stated age. Obese. Derm: Skin warm and dry, normal coloration for ethnicity. Head: Atraumatic, normocephalic and symmetric. Eyes: EOMs intact, no lid lag, and anicteric sclera Mouth: no lip lesions, mucus membranes moist Cardiovascular: regular rate and rhythm with normal S1S2, no murmur, positive posterior tibial pulses bilaterally, and cap refill < 2 seconds. Lungs: Respirations even, regular, and unlabored on room air. Lungs CTA bilaterally, no rhonchi, no rales, no wheezing, and no accessory muscle usage. Abdominal: Obese abdomen soft, nontender to palpation, no guarding, no appreciable organomegaly Ext: ROM intact. No gross muscle atrophy, no edema, no contractures Neuro: Speech clear, face symmetrical and CN II-XII grossly intact with no noted focal neuro deficits Psych: Alert and oriented to person, place, time, and situation. Appropriate and pleasant affect. A total of 31 minutes of time were spent preparing this complex discharge summary. Pt was discharged on 04/20/22 at 3:02 PM. Wyatt Newsome NP rendered care for this patient independently, reviewed the findin gs and plan as documented in the note above. I did not physically speak with or examine the patient on this date. Patient Condition at Discharge: Stable Plan - Discharge Summary Discharge Rx Participant: No New Discharge Prescriptions: Continue atenoloL 12.5 mg PO DAILY Multivitamins, Thera [Multivitamin (formulary)] 1 tab PO DAILY Anastrozole 1 mg PO Q48H Testosterone Cypionate [Depo-Testosterone] 100 mg IM TU Cholecalciferol (Vitamin D3) [Vitamin D3 (125 MCG = 5,000 IU)] 125 mcg PO DAILY Semaglutide [Ozempic] 0.5 mg SQ TU Losartan/Hydrochlorothiazide [Hyzaar 100-25 Tablet] 1 tab PO DAILY Discharge Medication List Anastrozole 1 mg PO Q48H 10/06/20 [History] Multivitamins, Thera [Multivitamin (formulary)] 1 tab PO DAILY 10/06/20 [History] Testosterone Cypionate [Depo-Testosterone] 100 mg IM 10/06/20 [History] atenoloL 12.5 mg PO DAILY 10/06/20 [History] Cholecalciferol (Vitamin D3) [Vitamin D3 (125 MCG = 5,000 IU)] 125 mcg PO DAILY 04/19/22 [History] Losartan/Hydrochlorothiazide [Hyzaar 100-25 Tablet] 1 tab PO DAILY 04/19/22 [Hi story] Semaglutide [Ozempic] 0.5 mg SQ TU 04/19/22 [History] Follow up Appointment(s)/Referral(s): Jono Galvez DO [STAFF PHYSICIAN] - 1 Week Juancho Ruiz MD [Primary Care Provider] - 1-2 days Activity/Diet/Wound Care/Special Instructions: Activity: As tolerated. Take breaks as needed. Diet: Heart healthy and carb consistent diet. Avoid salts, or foods with hidden salts such as canned or boxed foods and frozen dinners. Extra salt makes your heart work harder and traps the fluid in your body for longer. Special Instructions: Take all of your medications as directed and remember to keep all of your doctor's appointments and follow-up as needed. Thank you for allowing us to participate in your care, it was truly a pleasure having you for our patient!!! Discharge Disposition: HOME SELF-CARE
[2022-04-20 15:36] VITALS: TEMP 98.8
[2022-04-20 18:12] VITALS: BP 147/90; PULSE 78
--- NOTE | 2022-04-20 21:39 | P.CARDCATH ---
Description of Procedure: PROCEDURES PERFORMED: Left heart catheterization, bilateral coronary angiography INDICATION: Chest pain concerning for unstable angina PROCEDURE: After the risks, benefits and alternatives of the above mentioned procedure explained in detail with the patient, informed consent was obtained. Patient was taken to the catheterization lab and prepped and draped in usual fashion. 1% lidocaine was used to anesthetize the right radial artery. A 6- Jordanian sheath was placed in the right radial artery using modified Seldinger technique. Left coronary angiography was performed with a 5-Jordanian JL 3.5 catheter and right coronary angiography was performed with a 5-Jordanian FR5 catheter in various views. A 5-Jordanian FR5 catheter was inserted into the left ventricle and pressure measurements were obtained. The right radial sheath was removed and a TR band was placed with hemostasis achieved. The patient tolerated the procedure well. Patient was transported back to the post catheterization holding area in stable condition. Conscious Sedation: Patient was monitored under the direct supervision of vision of myself for conscious sedation using Versed and fentanyl for a total duration of 16 minutes HEMODYNAMICS: Aortic: 135/83 LV: 129/10, LVEDP 18 SELECTIVE CORONARY ARTERIOGRAPHY: LEFT MAIN: The left main is a large caliber vessel which bifurcates into the LAD and circumflex. There is no significant stenosis. LEFT ANTERIOR DESCENDING CORONARY ARTERY: LAD is a large caliber vessel which wraps around to the apex. There is no significant stenosis. LEFT CIRCUMFLEX CORONARY ARTERY: Left circumflex is a moderate caliber vessel without significant stenosis. RIGHT CORONARY ARTERY: The right coronary artery is a large caliber vessel which gives off a PDA and PLV branch and is the dominant vessel. There is no significant stenosis. FINAL IMPRESSION: 1. Normal coronary arteries as described above 2. Mildly elevated left sided filling pressures PLAN: 1. Aggressive risk factor modification per most recent ACC/AHA guidelines.
[2022-04-21] MEDS ORDERED: HEPARIN SODIUM,PORCINE 2,500 UNIT in SODIUM CHLORIDE 0.9% 250 ML IRRIGATION PRN (07:00)
[2022-04-21] MEDS ORDERED: HEPARIN SODIUM,PORCINE 10,000 UNIT in SODIUM CHLORIDE 0.9% 1,000 ML IRRIGATION PRN (07:00)
[2022-04-21] MEDS ORDERED: ASPIRIN 81 MG PO SCH (09:00)
== END 2022-04-20 18:35 | disposition home or self-care (01) ==
LOC: EC 08:23 → 6NMEDSUR 11:03
PROVIDERS: ADMIT Internal Medicine; ATTEND Internal Medicine
DX: I07.1 Rheumatic tricuspid insufficiency (principal); I20.0 Unstable angina; I10 Essential (primary) hypertension; E66.01 Morbid (severe) obesity due to excess calories; Z68.44 Body mass index [BMI] 60.0-69.9, adult; G47.33 Obstructive sleep apnea (adult) (pediatric); R51.9 Headache, unspecified; Z79.890 Hormone replacement therapy; Z82.3 Family history of stroke; Z82.49 Family history of ischemic heart disease and other diseases of the circulatory system; Z87.891 Personal history of nicotine dependence; Z86.14 Personal history of Methicillin resistant Staphylococcus aureus infection; Z79.899 Other long term (current) drug therapy; Z91.048 Other nonmedicinal substance allergy status
CPT/HCPCS: 96372 ×2; 96374; 99285; 36415; 93005; 93306; 93458; 85379; 83880; 80061; 80053; 83735; 84484; 85025; 85610; 85730; 71046; 70450; G0378 ×2; C1769; C1894; J2250; J2001; J3010; J1644 ×3; Q9950; Q9967

== ENCOUNTER 2022-04-29 03:17 | Emergency (ER) | payer MEDICAID ==
--- NOTE | 2022-04-29 04:27 | ED ---
Chest Pain HPI - General Chief Complaint: Chest Pain Stated Complaint: Chest Pain, Back Pain, Left extremity numbness Time Seen by Provider: 04/29/22 03:40 Source: patient Mode of arrival: ambulatory Limitations: no limitations - History of Present Illness Initial Comments: This patient is a 41-year-old man who presents to have evaluation of chest pain. He indicates the upper portion of the right chest and states that it does radiate towards his back. You also has had radiation to the left arm. He states he was having similar pains within the past couple weeks and he had been admitted in the hospital and had heart cath. Patient was at work at the onset. No associated symptoms. MD Complaint: chest pain -: hour(s) Onset: during rest Pain Radiation: LUE Severity: moderate Quality: aching Consistency: intermittent Improves With: nothing Worsens With: nothing Treatments Prior to Arrival: none - Related Data Home Medications Medication Instructions Recorded Confirmed Anastrozole 1 mg PO Q48H 10/06/20 04/19/22 Multivitamins, Thera [Multivitamin 1 tab PO DAILY 10/06/20 04/19/22 (formulary)] Testosterone Cypionate 100 mg IM TU 10/06/20 04/19/22 [Depo-Testosterone] atenoloL 12.5 mg PO DAILY 10/06/20 04/19/22 Cholecalciferol (Vitamin D3) 125 mcg PO DAILY 04/19/22 04/19/22 [Vitamin D3 (125 MCG = 5,000 IU)] Losartan/Hydrochlorothiazide 1 tab PO DAILY 04/19/22 04/19/22 [Hyzaar 100-25 Tablet] Semaglutide [Ozempic] 0.5 mg SQ TU 04/19/22 04/19/22 Allergies Allergy/AdvReac Type Severity Reaction Status Date / Time Iodine and Iodide Containing AdvReac Nausea & Verified 04/29/22 03:22 Produc Vomiting Review of Systems ROS Statement: Those systems with pertinent positive or pertinent negative responses have been documented in the HPI. ROS Other: All systems not noted in ROS Statement are negative. Constitutional: Denies: fever Respiratory: Denies: cough, dyspnea Cardiovascular: Reports: as per HPI, chest pain. Denies: palpitations, orthopnea, edema, syncope Gastrointestinal: Denies: abdominal pain, nausea, vomiting Genitourinary: Denies: dysuria, hematuria Musculoskeletal: Denies: back pain Skin: Denies: rash Neurological: Denies: headache, weakness EKG Findings - EKG Results: EKG: interpreted by REBECCA, sinus rhythm (Rate 69 bpm), normal axis, normal ST/T - Blocks, [place], Hypertrophy, ST Abn: AV and intraventricular conduction: intraventricular conduction delay Past Medical History Past Medical History: Hypertension, Sleep Apnea/CPAP/BIPAP Additional Past Medical History / Comment(s): Rotator Cuff injury, negative stress test 2013 History of Any Multi-Drug Resistant Organisms: MRSA Date of last positivie culture/infection: 2007 MDRO Source:: Throat Past Surgical History: Orthopedic Surgery Additional Past Surgical History / Comment(s): Rt knee arthroscopy; colonoscopy 2009; rt rotator cuff repair, Past Anesthesia/Blood Transfusion Reactions: No Reported Reaction Past Psychological History: No Psychological Hx Reported Smoking Status: Former smoker Past Alcohol Use History: Rare Past Drug Use History: None Reported - Past Family History Father Family Medical History: Cancer, Hypertension Additional Family Medical History / Comment(s): Prostate cancer. Mother Family Medical History: No Reported History Additional Family Medical History / Comment(s): Borderline HTN General Exam Limitations: no limitations General appearance: alert, in no apparent distress Head exam: Present: atraumatic, normocephalic Eye exam: Present: normal appearance. Absent: scleral icterus, conjunctival injection Neck exam: Present: normal inspection. Absent: tenderness, meningismus Respiratory exam: Present: normal lung sounds bilaterally. Absent: respiratory distress, wheezes, rales, rhonchi, stridor, chest wall tenderness Cardiovascular Exam: Present: regular rate, normal rhythm, normal heart sounds. Absent: systolic murmur, diastolic murmur, rubs, gallop GI/Abdominal exam: Present: soft. Absent: distended, tenderness Extremities exam: Present: normal inspection, normal capillary refill. Absent: pedal edema, calf tenderness Back exam: Present: normal inspection Neurological exam: Present: alert Skin exam: Present: warm, dry, intact, normal color. Absent: rash Course Vital Signs 04/29/22 04/29/22 04/29/22 03:18 06:00 07:30 Temperature 98.2 F 97 F L Pulse Rate 62 65 62 Respiratory 22 19 16 Rate Blood Pressure 171/112 151/93 154/94 O2 Sat by Pulse 97 95 97 Oximetry Disposition Clinical Impression: Chest pain Disposition: HOME SELF-CARE Condition: Good Instructions (If sedation given, give patient instructions): Chest Pain (ED) Is patient prescribed a controlled substance at d/c from ED?: No Referrals: Juancho Ruiz MD [Primary Care Provider] - 1-2 days
[2022-04-29 04:40] LABS: Basophils # (A) 0.1 k/uL (0-0.2); Basophils % (A) 1 %; Eosinophils # (A) 0.2 k/uL (0-0.7); Eosinophils % (A) 2 %; HCT 44.1 % (39.0-53.0); HGB 14.4 gm/dL (13.0-17.5); Lymphocytes % (A) 20 %; MCH 28.7 pg (25.0-35.0); MCHC 32.6 g/dL (31.0-37.0); Mean Platelet Volume 8.4; Monocytes # (A) 0.7 k/uL (0-1.0); Monocytes % (A) 8 %; Neutrophils # (A) 6.5 k/uL (1.3-7.7); Neutrophils % (A) 66 %; Platelet Count 263 k/uL (150-450); RBC 5.01 m/uL (4.30-5.90); RDW 14.4 % (11.5-15.5); WBC 9.9 k/uL (3.8-10.6)
[2022-04-29 04:57] LABS: Partial Thromboplastin Time 24.5 sec (22.0-30.0); Prothrombin Time 10.6 sec (9.0-12.0)
[2022-04-29 04:58] LABS: ALT 35 U/L (4-49); AST 37 U/L (17-59); African American GFR (CKD) >90 (>60 ml/min/1.73 sqM); Albumin 3.7 g/dL (3.5-5.0); Alkaline Phosphatase 59 U/L (38-126); Amylase 60 U/L (30-110); Anion Gap 10 mmol/L; Blood Urea Nitrogen 15 mg/dL (9-20); Calcium 9.2 mg/dL (8.4-10.2); Carbon Dioxide 22 mmol/L (22-30); Chloride 107 mmol/L (98-107); Glucose 76 mg/dL (74-99); Lipase 89 U/L (23-300); Non-African American GFR(CKD) >90 (>60 ml/min/1.73 sqM); Potassium 4.1 mmol/L (3.5-5.1); Sodium 139 mmol/L (137-145); Total Bilirubin 0.7 mg/dL (0.2-1.3); Total Protein 6.8 g/dL (6.3-8.2)
--- NOTE | 2022-04-29 05:05 | XR ---
EXAMINATION TYPE: XR chest 1V portable DATE OF EXAM: 04/29/2022 COMPARISON: 04/19/2022 HISTORY: Chest pain TECHNIQUE: FINDINGS: There is no heart failure nor confluent pneumonic infiltrate. Costophrenic angles are clear . Heart size is normal. Bony thorax is intact. IMPRESSION: No active cardiopulmonary disease. Normal heart. No change
[2022-04-29] MEDS ORDERED: methylPREDNISolone SOD SUCCI 125 MG/2 ML VIAL IV STA (05:48)
[2022-04-29] MEDS ORDERED: FAMOTIDINE 20 MG/2 ML VIAL IV STA (05:48)
[2022-04-29] MEDS ORDERED: diphenhydrAMINE 50 MG/ML 1 ML VIAL IVP STA (05:48)
--- NOTE | 2022-04-29 07:13 | CT ---
EXAMINATION TYPE: CT angio thor/abd pel aorta DATE OF EXAM: 04/29/2022 COMPARISON: None HISTORY: Chest pain, history of recent heart cath. CT DLP: 5598 mGycm Automated exposure control for dose reduction was used. CONTRAST: Performed without and with IV Contrast, patient injected with 100ml mL of Isovue 370. Images obtained from the thoracic inlet to the floor the pelvis with the IV contrast and without cont rast. There are Three-D postprocessed images. Thoracic aorta is intact. No aneurysm or dissection. No mediastinal adenopathy. There are no hilar ma sses. Heart size is normal. No pericardial effusion. There is normal contrast opacification of the pulmonary arteries. No filling defect. Liver spleen pancreas gallbladder and stomach appear intact. The bile ducts are not dilated. There is no adrenal mass. Kidneys show satisfactory contrast opacification. There is no hydronephrosis. Exam limited by patient size. Appendix appears normal. No retroperitoneal adenopathy. Ureters are not dila laura. Bladder distends smoothly. There are some large bowel diverticula. No diverticulitis. No mesenteric edema. No ascites or free ai r. No sign of a bowel obstruction. There is normal contrast opacification of the iliac and femoral arteries. There is normal contrast op acification of the celiac artery and superior mesenteric artery. There is arterial flow in the renal arteries. No evidence of arterial aneurysm or dissection. No evidence of hemodynamically stenosis. The thoracic and lumbar vertebra show no compression fracture. There is L5-S1 first-degree spondyloli sthesis. There is L5 spondylolysis. The bony pelvis is intact. The hip joints are intact. IMPRESSION: Negative CT angiogram of the chest abdomen pelvis. No evidence of arterial aneurysm or dissection. No hemodynamic stenosis. No evidence of pulmonary embolism.
[2022-04-29 07:33] VITALS: BP 154/94; PULSE 62; RESP 16; TEMP 97
== END 2022-04-29 07:42 | disposition home or self-care (01) ==
LOC: EC 03:17
DX: R07.89 Other chest pain (principal); I10 Essential (primary) hypertension; Z87.891 Personal history of nicotine dependence; Z91.041 Radiographic dye allergy status; Z79.899 Other long term (current) drug therapy
CPT/HCPCS: 36415; 85379; 80053; 82150; 83690; 83735; 84484; 85025; 85610; 85730; 71045; 71275; 74174; 99285; 96374; 96375; J1200; J2930; Q9967

== ENCOUNTER → 2023-03-23 | Outpatient (CLI) | payer MEDICAID ==
--- NOTE | 2023-03-23 14:10 | P.PN ---
Subjective DATE: 03/23/2023 FOLLOW UP VISIT. Patient with obstructive sleep apnea hypopnea syndrome return to sleep center for follow-up visit. Information from previous visit have been reviewed. Patient is using PAP equipment every night for the whole night, getting PAP supplies in time. The patient does not have significant problems with the mask, PAP unit and humidification. Anna sleepiness scale is increased to 14. I checked information from PAP unit. PAP unit pressure 15 cm H2O. Usage is 100 % for more then 4 hours, average 7.2 hours per night. Leak is 5 l/m, which is in acceptable range. Apnea Hypopnea Index is 0.3, which is normal. MEDICATIONS:1. Anastrozole 1 mg once a day 2. Losartan / hydrochlorothiazide 100/25 mg once a day 3. Testosterone 4. Omeprazole During physical exam: GENERAL: A pleasant patient without any distress. VITAL SIGNS: BP 145/89, HR 89, RR 18, weight 109.6, temperature 97.7, oxygen saturation at room air 93 % . HEENT: PERRLA, EOMI.low position of soft palate, Mallapati 3 . NECK: Supple. No JVD. LUNGS: Clear to percussion and to auscultation. Good air exchange. No wheezing or rhonchi. HEART: S1, S2 regular. ABDOMEN: Soft and nontender.[] EXTREMITIES: No clubbing or cyanosis. OUTBOARD MOTORBOAT RIGGER: Awake, alert, and oriented x3. No focal deficit. Impressions: 1. Obstructive sleep apnea-hypopnea syndrome. Patient demonstrated great compliance with treatment, benefiting from treatment. 2. Obesity. 3. Hypertension. 4. History of low testosterone level. 5. Status post right knee arthroscopic surgery. 6. Status post Covid 19. Plan: 1. Continue using PAP equipment every night for the whole night. 2. To change air filter at least 1-2 times per month. 3. PAP unit should stay lower then position of the head. 4. Advised patient to remove all remaining water from humidifier canister daily and make it dry after each usage. Refill canister with fresh distilled water before each usage. 5. Sleep hygiene with regular time in bed for at least 8 hours. 6. Precautions related to driving. No driving if feel any sleepiness. 7. I will maintain prescription for PAP supplies including mask, tube, filters. 8. Follow up visit in 6 months or earlier if patient has any problems. 9. Watching and losing weight. Thank you very much for allowing me to participate in the management of your patient. Xander Brannon MD, PhD, FAASM. Diplomat of [employer], Sleep Medicine Board by [employer] Wardrobe Coordinator of [facility] [place]
== END ==
LOC: 3 N SLEEP 13:04
PROVIDERS: ATTEND Internal Medicine
DX: G47.33 Obstructive sleep apnea (adult) (pediatric) (principal); E66.9 Obesity, unspecified; I10 Essential (primary) hypertension; U09.9 Post COVID-19 condition, unspecified; Z86.39 Personal history of other endocrine, nutritional and metabolic disease; Z96.651 Presence of right artificial knee joint; Z99.89 Dependence on other enabling machines and devices; Z88.8 Allergy status to other drugs, medicaments and biological substances; Z87.891 Personal history of nicotine dependence
CPT/HCPCS: 99212

== ENCOUNTER 2023-06-29 17:05 | Emergency (ER) | payer MEDICAID ==
[2023-06-29 17:34] VITALS: TEMP 98.6
[2023-06-29] MEDS ORDERED: FAMOTIDINE 20 MG/2 ML VIAL IV STA (18:19)
[2023-06-29] MEDS ORDERED: diphenhydrAMINE 50 MG/ML 1 ML VIAL IVP STA (18:19)
[2023-06-29] MEDS ORDERED: methylPREDNISolone SOD SUCCI 125 MG/2 ML VIAL IV STA (18:19)
--- NOTE | 2023-06-29 18:21 | ED ---
Abdominal Pain HPI - General Source: patient Mode of arrival: ambulatory Limitations: no limitations <Ashwini Figueroa - Last Filed: 06/29/23 18:20> - History of Present Illness MD Complaint: abdominal pain -: days(s) Location: LUQ, LLQ Radiation: none Migration to: no migration Severity: moderate Quality: aching Consistency: constant Improves With: nothing Worsens With: nothing Associated Symptoms: denies other symptoms <Nicola Pryor - Last Filed: 07/09/23 07:39> - General Chief Complaint: Abdominal Pain Stated Complaint: abd pain Time Seen by Provider: 06/29/23 18:20 - History of Present Illness Initial Comments: 42-year-old male presenting with chief complaint of left lower quadrant pain. He was seen in urgent care prior who advised him to report to the ER for further evaluation. (Ashwini Figueroa) - Related Data Home Medications Medication Instructions Recorded Confirmed Anastrozole 1 mg PO Q48H 10/06/20 04/19/22 Multivitamins, Thera [Multivitamin 1 tab PO DAILY 10/06/20 04/19/22 (formulary)] Testosterone Cypionate 100 mg IM TU 10/06/20 04/19/22 [Depo-Testosterone] atenoloL 12.5 mg PO DAILY 10/06/20 04/19/22 Cholecalciferol (Vitamin D3) 125 mcg PO DAILY 04/19/22 04/19/22 [Vitamin D3 (125 MCG = 5,000 IU)] Losartan/Hydrochlorothiazide 1 tab PO DAILY 04/19/22 04/19/22 [Hyzaar 100-25 Tablet] Semaglutide [Ozempic] 0.5 mg SQ TU 04/19/22 04/19/22 Previous Rx's Medication Instructions Recorded Amoxic-Pot Clav 875-125Mg 1 tab PO Q12HR 1 Days #14 tab 06/30/23 [Augmentin 875-125] Allergies Allergy/AdvReac Type Severity Reaction Status Date / Time Iodine and Iodide Containing AdvReac Nausea & Verified 04/29/22 03:22 Produc Vomiting Review of Systems ROS Other: All systems not noted in ROS Statement are negative. <Ashwini Figueroa - Last Filed: 06/29/23 18:20> ROS Other: All systems not noted in ROS Statement are negative. Constitutional: Denies: fever, chills Respiratory: Denies: cough, dyspnea Cardiovascular: Denies: chest pain, palpitations Gastrointestinal: Reports: abdominal pain, nausea. Denies: vomiting, diarrhea, constipation, melena, hematochezia Genitourinary: Denies: dysuria, hematuria, testicular pain Musculoskeletal: Denies: back pain Skin: Denies: rash Neurological: Denies: headache, weakness, numbness <JojoNicola banks - Last Filed: 07/09/23 07:39> ROS Statement: Those systems with pertinent positive or pertinent negative responses have been documented in the HPI. Past Medical History Past Medical History: Hypertension, Sleep Apnea/CPAP/BIPAP Additional Past Medical History / Comment(s): Rotator Cuff injury, negative stress test 2013 History of Any Multi-Drug Resistant Organisms: MRSA Date of last positivie culture/infection: 2007 MDRO Source:: Throat Past Surgical History: Orthopedic Surgery Additional Past Surgical History / Comment(s): Rt knee arthroscopy; colonoscopy 2009; rt rotator cuff repair, Past Anesthesia/Blood Transfusion Reactions: No Reported Reaction Past Psychological History: No Psychological Hx Reported Smoking Status: Former smoker Past Alcohol Use History: Rare Past Drug Use History: None Reported - Past Family History Father Family Medical History: Cancer, Hypertension Additional Family Medical History / Comment(s): Prostate cancer. Mother Family Medical History: No Reported History Additional Family Medical History / Comment(s): Borderline HTN <Ashwini Figueroa - Last Filed: 06/29/23 18:20> General Exam Limitations: no limitations <Ashwini Figueroa - Last Filed: 06/29/23 18:20> General appearance: alert, in no apparent distress Head exam: Present: atraumatic, normocephalic Eye exam: Present: normal appearance. Absent: scleral icterus, conjunctival injection Neck exam: Present: normal inspection Respiratory exam: Present: normal lung sounds bilaterally. Absent: respiratory distress, wheezes, rales, rhonchi, stridor Cardiovascular Exam: Present: regular rate, normal rhythm, normal heart sounds. Absent: systolic murmur, diastolic murmur, rubs, gallop GI/Abdominal exam: Present: soft, tenderness (Monitor left lower quadrant tenderness). Absent: distended, guarding, rebound, rigid, mass, pulsatile mass, hernia Extremities exam: Present: normal inspection, normal capillary refill. Absent: pedal edema, calf tenderness Back exam: Present: normal inspection. Absent: CVA tenderness (R), CVA tenderness (L) Neurological exam: Present: alert Skin exam: Present: warm, dry, intact, normal color. Absent: rash <Nicola Pryor - Last Filed: 07/09/23 07:39> - General Exam Comments Initial Comments: Visual Physical Exam Vital signs reviewed General: Well-appearing, nontoxic, no acute distress. Head: Normocephalic, atraumatic Eyes: PERRLA, EOMI ENT: Airway patent Chest: Nonlabored breathing Skin: No visual rash, normal skin tone Neuro: Alert and oriented 3 Musculoskeletal: No gross abnormalities (Ashwini Figueroa) Course Vital Signs 06/29/23 06/30/23 06/30/23 17:24 00:45 03:20 Temperature 98.6 F Pulse Rate 80 84 76 Respiratory 16 18 18 Rate Blood Pressure 148/88 137/80 148/96 O2 Sat by Pulse 98 95 93 L Oximetry Medical Decision Making - Lab Data Result diagrams: 06/29/23 20:31 06/29/23 20:31 <Nicola Pryor - Last Filed: 07/09/23 07:39> - Medical Decision Making The patient had abdominal x-ray that I interpreted as negative for obstruction or free air. The patient had CT of the abdomen which I interpreted to show presence of diverticulitis. Was pt. sent in by a medical professional or institution (JANETTE Rosario, FINANCIAL SERVICES REP, urgent care, hospital, or detention...) When possible be specific @ -[No] Did you speak to anyone other than the patient for history (EMS, parent, family, police, friend...)? What history was obtained from this source @ -[No] Did you review nursing and triage notes (agree or disagree)? Why? @ -[I reviewed and agree with nursing and triage notes] Were old charts reviewed (outside hosp., previous admission, EMS record, old EKG, old radiological studies, urgent care reports/EKG's, detention records)? Report findings @ -[No old charts were reviewed] Differential Diagnosis (chest pain, altered mental status, abdominal pain women, abdominal pain men, vaginal bleeding, weakness, fever, dyspnea, syncope, h eadache, dizziness, GI bleed, back pain, seizure, CVA, palpatations, mental health, musculoskeletal)? @ -[Differential Abdominal Pain Men: Appendicitis, cholecystitis, diverticulosis, ischemic bowel, pancreatitis, hepatitis, UTI, gastroenteritis, AAA, incarcerated hernia, bowel obstruction, constipation, inflammatory bowel, hepatitis, peptic ulcer disease, splenic infarction, perforated viscus, testicular torsion, this is not meant to be an all-inclusive list EKG interpreted by me (3pts min.). @ -[ X-rays interpreted by me (1pt min.). @ -[I interpreted as above CT interpreted by me (1pt min.). @ -[I interpreted as above U/S interpreted by me (1pt. min.). @ -[None done] What testing was considered but not performed or refused? (CT, X-rays, U/S, labs)? Why? @ -[None] What meds were considered but not given or refused? Why? @ -[None] Did you discuss the management of the patient with other professionals (professionals i.e. , PA, FINANCIAL SERVICES REP, lab, RT, psych nurse, vp digital marketing social media and crm, wire stripping machine operator, teacher, medical scientific officer, case briefer)? Give summary @ -[No] Was smoking cessation discussed for >3mins.? @ -[No] Was critical care preformed (if so, how long)? @ -[No] Were there social determinants of health that impacted care today? How? (Homelessness, low income, unemployed, alcoholism, drug addiction, transportation, low edu. Level, literacy, decrease access to med. care, long-term, rehab)? @ -[No] Was there de-escalation of care discussed even if they declined (Discuss DNR or withdrawal of care, Hospice)? DNR status @ -[No] What co-morbidities impacted this encounter? (DM, HTN, Smoking, COPD, CAD, Cancer, CVA, ARF, Chemo, Hep., AIDS, mental health diagnosis, sleep apnea, morbid obesity)? @ -[Diverticular disease Was patient admitted / discharged? Hospital course, mention meds given and route, prescriptions, significant lab abnormalities, going to OR and other pertinent info. @ -[Patient's 42-year-old man with left-sided abdominal pain. The patient had CT that does demonstrate diverticulitis. At this point he would like to try outpatient course medication. The antibiotics are started here. We discussed appropriate further care and follow-up as well as return parameters. Undiagnosed new problem with uncertain prognosis? @ -[No] Drug Therapy requiring intensive monitoring for toxicity (Heparin, Nitro, Insulin, Cardizem)? @ -[No] Were any procedures done? @ -[No] Diagnosis/symptom? @ -[Acute diverticulitis Acute, or Chronic, or Acute on Chronic? @ -[Acute Uncomplicated (without systemic symptoms) or Complicated (systemic symptoms)? @ -Uncomplicated Side effects of treatment? @ -[No] Exacerbation, Progression, or Severe Exacerbation? @ -[No] Poses a threat to life or bodily function? How? (Chest pain, [place], [place], pneumonia, PE, COPD, DKA, ARF, appy, cholecystitis, CVA, Diverticulitis, Homicidal, Suicidal, threat to staff... and all critical care pts) @ -[No] (Nicola Pryor) - Lab Data Lab Results 06/29/23 06/29/23 06/29/23 Range/Units 20:31 20:31 20:31 WBC 12.4 H (3.8-10.6) k/uL RBC 5.30 (4.30-5.90) m/uL Hgb 15.5 (13.0-17.5) gm/dL Hct 45.8 (39.0-53.0) % MCV 86.4 (80.0-100.0) fL MCH 29.3 (25.0-35.0) pg MCHC 33.9 (31.0-37.0) g/dL RDW 14.8 (11.5-15.5) % Plt Count 272 (150-450) k/uL MPV 8.3 Neutrophils % 76 % Lymphocytes % 14 % Monocytes % 7 % Eosinophils % 2 % Basophils % 0 % Neutrophils # 9.4 H (1.3-7.7) k/uL Lymphocytes # 1.7 (1.0-4.8) k/uL Monocytes # 0.8 (0-1.0) k/uL Eosinophils # 0.2 (0-0.7) k/uL Basophils # 0.0 (0-0.2) k/uL PT (9.0-12.0) sec INR (<1.2) APTT (22.0-30.0) sec Sodium 138 (137-145) mmol/L Potassium 3.5 (3.5-5.1) mmol/L Chloride 100 (98-107) mmol/L Carbon Dioxide 28 (22-30) mmol/L Anion Gap 10 mmol/L BUN 16 (9-20) mg/dL Creatinine 0.92 (0.66-1.25) mg/dL Est GFR (CKD-EPI)AfAm >90 (>60 ml/min/1.73 sqM) Est GFR (CKD-EPI)NonAf >90 (>60 ml/min/1.73 sqM) Glucose 79 (74-99) mg/dL Calcium 9.3 (8.4-10.2) mg/dL Total Bilirubin 1.7 H (0.2-1.3) mg/dL AST 33 (17-59) U/L ALT 27 (4-49) U/L Alkaline Phosphatase 67 (38-126) U/L Troponin I <0.012 (0.000-0.034) ng/mL Total Protein 7.5 (6.3-8.2) g/dL Albumin 4.0 (3.5-5.0) g/dL Amylase 56 (30-110) U/L Lipase 95 (23-300) U/L Urine Color Urine Appearance (Clear) Urine pH (5.0-8.0) Ur Specific [place] (1.001-1.035) Urine Protein (Negative) Urine Glucose (UA) (Negative) Urine Ketones (Negative) Urine Blood (Negative) Urine Nitrite (Negative) Urine Bilirubin (Negative) Urine Urobilinogen (<2.0) mg/dL Ur Leukocyte Esterase (Negative) 06/29/23 06/29/23 Range/Units 22:35 23:38 WBC (3.8-10.6) k/uL RBC (4.30-5.90) m/uL Hgb (13.0-17.5) gm/dL Hct (39.0-53.0) % MCV (80.0-100.0) fL MCH (25.0-35.0) pg MCHC (31.0-37.0) g/dL RDW (11.5-15.5) % Plt Count (150-450) k/uL MPV Neutrophils % % Lymphocytes % % Monocytes % % Eosinophils % % Basophils % % Neutrophils # (1.3-7.7) k/uL Lymphocytes # (1.0-4.8) k/uL Monocytes # (0-1.0) k/uL Eosinophils # (0-0.7) k/uL Basophils # (0-0.2) k/uL PT 11.1 (9.0-12.0) sec INR 1.1 (<1.2) APTT 25.3 (22.0-30.0) sec Sodium (137-145) mmol/L Potassium (3.5-5.1) mmol/L Chloride (98-107) mmol/L Carbon Dioxide (22-30) mmol/L Anion Gap mmol/L BUN (9-20) mg/dL Creatinine (0.66-1.25) mg/dL Est GFR (CKD-EPI)AfAm (>60 ml/min/1.73 sqM) Est GFR (CKD-EPI)NonAf (>60 ml/min/1.73 sqM) Glucose (74-99) mg/dL Calcium (8.4-10.2) mg/dL Total Bilirubin (0.2-1.3) mg/dL AST (17-59) U/L ALT (4-49) U/L Alkaline Phosphatase (38-126) U/L Troponin I (0.000-0.034) ng/mL Total Protein (6.3-8.2) g/dL Albumin (3.5-5.0) g/dL Amylase (30-110) U/L Lipase (23-300) U/L Urine Color Yellow Urine Appearance Clear (Clear) Urine pH 5.5 (5.0-8.0) Ur Specific [place] 1.031 (1.001-1.035) Urine Protein Trace H (Negative) Urine Glucose (UA) Negative (Negative) Urine Ketones Negative (Negative) Urine Blood Negative (Negative) Urine Nitrite Negative (Negative) Urine Bilirubin Negative (Negative) Urine Urobilinogen <2.0 (<2.0) mg/dL Ur Leukocyte Esterase Negative (Negative) Disposition <Ashwini Figueroa - Last Filed: 06/29/23 18:20> Is patient prescribed a controlled substance at d/c from ED?: No <Nicola Pryor - Last Filed: 07/09/23 07:39> Clinical Impression: Diverticulitis Disposition: HOME SELF-CARE Condition: Good Instructions (If sedation given, give patient instructions): Diverticulitis (ED) Prescriptions: Amoxic-Pot Clav 875-125Mg [Augmentin 875-125] 1 tab PO Q12HR 1 Days #14 tab Referrals: Juancho Ruiz MD [Primary Care Provider] - 1-2 days
--- NOTE | 2023-06-29 18:25 | XR ---
EXAMINATION TYPE: XR KUB DATE OF EXAM: 06/29/2023 COMPARISON: 01/28/2010 INDICATION: Abdomen pain TECHNIQUE: Single view abdomen upright view FINDINGS: There is a normal bowel gas pattern. No suspicious air-fluid levels or differential air-fluid levels are present. No free air is present Psoas margins are normal. No organomegaly is present. No suspicious calcifications are evident. The osseous structures appear intact. IMPRESSION: 1. Unremarkable Abdomen
[2023-06-29 20:40] LABS: Basophils % (A) 0 %; Eosinophils # (A) 0.2 k/uL (0-0.7); Eosinophils % (A) 2 %; HCT 45.8 % (39.0-53.0); HGB 15.5 gm/dL (13.0-17.5); Lymphocytes # (A) 1.7 k/uL (1.0-4.8); Lymphocytes % (A) 14 %; MCH 29.3 pg (25.0-35.0); MCHC 33.9 g/dL (31.0-37.0); MCV 86.4 fL (80.0-100.0); Mean Platelet Volume 8.3; Monocytes # (A) 0.8 k/uL (0-1.0); Monocytes % (A) 7 %; Neutrophils # (A) 9.4 k/uL (1.3-7.7); Neutrophils % (A) 76 %; Platelet Count 272 k/uL (150-450); RDW 14.8 % (11.5-15.5); WBC 12.4 k/uL (3.8-10.6)
[2023-06-29 20:53] LABS: ALT 27 U/L (4-49); AST 33 U/L (17-59); African American GFR (CKD) >90 (>60 ml/min/1.73 sqM); Alkaline Phosphatase 67 U/L (38-126); Amylase 56 U/L (30-110); Anion Gap 10 mmol/L; Blood Urea Nitrogen 16 mg/dL (9-20); Calcium 9.3 mg/dL (8.4-10.2); Carbon Dioxide 28 mmol/L (22-30); Chloride 100 mmol/L (98-107); Glucose 79 mg/dL (74-99); Lipase 95 U/L (23-300); Non-African American GFR(CKD) >90 (>60 ml/min/1.73 sqM); Potassium 3.5 mmol/L (3.5-5.1); Sodium 138 mmol/L (137-145); Total Bilirubin 1.7 mg/dL (0.2-1.3); Total Protein 7.5 g/dL (6.3-8.2)
[2023-06-30 00:15] LABS: Appearance,Urine Clear (Clear); Bilirubin,Urine Negative (Negative); Blood,Urine Negative (Negative); Color,Urine Yellow; Glucose,Urine (UA) Negative (Negative); Ketones,Urine Negative (Negative); Leukocyte Esterase,Urine Negative (Negative); Nitrite,Urine Negative (Negative); PH, Urine 5.5 (5.0-8.0); Protein,Urine Trace (Negative); Specific Gravity,Urine 1.031 (1.001-1.035); Urobilinogen,Urine <2.0 mg/dL (<2.0)
[2023-06-30 00:19] LABS: INR 1.1 (<1.2); Partial Thromboplastin Time 25.3 sec (22.0-30.0); Prothrombin Time 11.1 sec (9.0-12.0)
[2023-06-30 00:54] VITALS: RESP 18
--- NOTE | 2023-06-30 02:27 | CT ---
EXAM: CT Abdomen and Pelvis With Intravenous Contrast CLINICAL HISTORY: ITS.REASON CT Reason: LLQ pain TECHNIQUE: Axial computed tomography images of the abdomen and pelvis with intravenous contrast. CTDI is 89.5 mGy and DLP is 4709.4 mGy-cm. This CT exam was performed using one or more of the following dose reduction techniques: automated exposure control, adjustment of the mA and/or kV according to patient size, and/or use of iterative reconstruction technique. COMPARISON: 04/29/2022 FINDINGS: Lung bases: Lung bases demonstrate bilateral dependent atelectasis. ABDOMEN: Liver: Unremarkable. No mass. Gallbladder and bile ducts: Unremarkable. No calcified stones. No ductal dilation. Pancreas: Unremarkable. No mass. No ductal dilation. Spleen: Unremarkable. No splenomegaly. Adrenals: 1.2 cm left adrenal nodule stable from study of 04/2022. Kidneys and ureters: Unremarkable. No solid mass. No hydronephrosis. Stomach and bowel: Acute diverticulitis at the junction of the descending and sigmoid colons. No evidence of diverticular abscess. No obstruction. PELVIS: Appendix: No findings to suggest acute appendicitis. Bladder: Unremarkable. No mass. Reproductive: Unremarkable as visualized. ABDOMEN and PELVIS: Intraperitoneal space: Unremarkable. No free air. No significant fluid collection. Bones/joints: Grade 1 anterolisthesis of L4 relative to L5 secondary to bilateral L4 pars defects. No acute fracture. No dislocation. Soft tissues: Unremarkable. Vasculature: Unremarkable. No abdominal aortic aneurysm. Lymph nodes: Unremarkable. No enlarged lymph nodes. IMPRESSION: Acute diverticulitis at the junction of the descending and sigmoid colons. No evidence of diverticular abscess.
[2023-06-30] MEDS ORDERED: AMOXIC-POT CLAV 875-125MG 1 EACH TAB PO STA (03:01)
[2023-06-30 03:29] VITALS: BP 148/96; PULSE 76
== END 2023-06-30 03:26 | disposition home or self-care (01) ==
LOC: EC 17:05
DX: K57.32 Diverticulitis of large intestine without perforation or abscess without bleeding (principal); I10 Essential (primary) hypertension; G47.30 Sleep apnea, unspecified; Z87.891 Personal history of nicotine dependence; Z79.899 Other long term (current) drug therapy; Z91.041 Radiographic dye allergy status
CPT/HCPCS: 36415; 80053; 82150; 83690; 84484; 85025; 85610; 85730; 81003; 74018; 74177; 99284; 96374; 96375 ×2; J1200; J2930; J3490; Q9967

== ENCOUNTER 2023-07-20 10:30 | Day surgery (SDC) | payer MEDICAID ==
[2023-07-15 14:36] VITALS: BMI 53.2
[~2023-07-20 10:30] MED LIST: LACTATED RINGERS 1,000 ML IV SCH
[2023-07-20 11:24] VITALS: RESP 16; TEMP 97.8
[2023-07-20] MEDS ORDERED: LIDOCAINE 1% INJ 10MG/ML (20 ML MDV) ONE (11:54)
[2023-07-20] MEDS ORDERED: PROPOFOL 10 MG/ML 20 ML VIAL IV ONE (11:54)
--- NOTE | 2023-07-20 11:59 | P.PCN ---
Date of Procedure: 07/20/23 Procedure(s) Performed: BRIEF HISTORY: Patient is a 42-year-old, pleasant, white male scheduled for an upper endoscop as a part of evaluation of atypical chest pain since March of last year. He was given a trial of omeprazole 20 mg twice daily with no help. He is hence scheduled for an upper endoscopy to evaluate further.. PROCEDURE PERFORMED: Esophagogastroduodenoscopy. PREOPERATIVE DIAGNOSIS: Atypical chest pain. IV sedation per anesthesia. PROCEDURE: After informed consent was obtained, the patient was brought into the endoscopy unit. IV sedation was administered by Anesthesia under continuous monitoring. Initially the Olympus GIF-140 video endoscope was inserted into the mouth. Esophagus intubated without any difficulty. It was gradually advanced into the stomach and duodenum and carefully examined. The bulb and the second part of the duodenum appeared normal. The scope at this time was withdrawn to the stomach, adequately insufflated with air, and upon careful examination, mucosa of the antrum,and mild gastritis and biopsies were done from this area. Mucosa of the body, cardia and the fundus appeared normal. The scope was then withdrawn into the esophagus. The GE junction was located at 42 cm from the incisors. The esophagus appeared normal. There were no erosions or ulcerations seen , biopsies were done from the distal esophagus and the patient tolerated the procedure well. IMPRESSION: 1.. Mild antral gastritis 2. Normal-appearing esophagus with no evidence of esophagitis. RECOMMENDATIONS: The findings of this examination were discussed with the patientas well as his family. He was advised to follow with the biopsy results. He'll be seen in office in 2-3 weeks.].
[2023-07-20 12:45] VITALS: BP 148/100; PULSE 76
== END 2023-07-20 12:39 | disposition home or self-care (01) ==
LOC: ORWHC2ENDO 10:30
PROVIDERS: ATTEND Internal Medicine Gastroenterology
DX: K29.50 Unspecified chronic gastritis without bleeding (principal); K21.00 Gastro-esophageal reflux disease with esophagitis, without bleeding; E66.01 Morbid (severe) obesity due to excess calories; I10 Essential (primary) hypertension; G47.33 Obstructive sleep apnea (adult) (pediatric); Z79.899 Other long term (current) drug therapy; Z88.8 Allergy status to other drugs, medicaments and biological substances; Z68.43 Body mass index [BMI] 50.0-59.9, adult
CPT/HCPCS: 88305; 43239; J2001; J2704

== ENCOUNTER → 2023-10-19 | Outpatient (CLI) | payer MEDICAID ==
--- NOTE | 2023-10-19 15:59 | P.PN ---
Subjective DATE: 10/19/2023 FOLLOW UP VISIT. Patient with obstructive sleep apnea hypopnea syndrome return to sleep center for follow-up visit. Information from previous visit have been reviewed. Patient is using PAP equipment every night for the whole night, getting PAP supplies in time. The patient does not have significant problems with the mask, PAP unit and humidification. [place] sleepiness scale is 7, which is normal. I checked information from PAP unit. PAP unit pressure 15 cm H2O. Usage is 100 % for more then 4 hours, average 7.4 hours per night. Leak is significantly increased to 59 l/m. Apnea Hypopnea Index is 0.2, which is normal. MEDICATIONS:1. Losartan/hydrochlorothiazide 100/25 mg once a day 2. Anastrazole 1 mg once a day 3. Iron supplement 4. Ozempic injection During physical exam: GENERAL: A pleasant patient without any distress. VITAL SIGNS: BP 170/85, HR 82, RR 16 , weight 388.0, temperature 98.1, oxygen saturation at room air 98 % . HEENT: PERRLA, EOMI.low position of soft palate, Mallapati 3 . NECK: Supple. No JVD. LUNGS: Clear to percussion and to auscultation. Good air exchange. No wheezing or rhonchi. HEART: S1, S2 regular. ABDOMEN: Soft and nontender.[] EXTREMITIES: No clubbing or cyanosis. PORTABLE SAWMILL OPERATOR: Awake, alert, and oriented x3. No focal deficit. Impressions: 1. Obstructive sleep apnea-hypopnea syndrome. Patient demonstrated great compliance with treatment, benefiting from treatment. 2. Obesity, BMI 54.1, patient lost 19 pounds since previous visit. 3. Hypertension. 4. History of low testosterone level. 5. Status post right knee arthroscopic surgery. 6. Status post Covid 19. Plan: 1. Continue using PAP equipment every night for the whole night. 2. To change air filter at least 1-2 times per month. 3. PAP unit should stay lower then position of the head. 4. Advised patient to remove all remaining water from humidifier canister daily and make it dry after each usage. Refill canister with fresh distilled water before each usage. 5. Sleep hygiene with regular time in bed for at least 8 hours. 6. Precautions related to driving. No driving if feel any sleepiness. 7. I will maintain prescription for PAP supplies including mask, tube, filters. 8. Watching and continue losing weight. 9. Follow up visit in 6 months or earlier if patient has any problems. Thank you very much for allowing me to participate in the management of your patient. Xander Brannon MD, PhD, FAASM. Diplomat of [place] [employer], Sleep Medicine Board by [place] [employer] Manager of [facility] [place]
== END ==
LOC: 3 N SLEEP 15:27
PROVIDERS: ATTEND Internal Medicine
DX: G47.33 Obstructive sleep apnea (adult) (pediatric) (principal); E66.9 Obesity, unspecified; I10 Essential (primary) hypertension; Z68.43 Body mass index [BMI] 50.0-59.9, adult; Z79.899 Other long term (current) drug therapy; Z99.89 Dependence on other enabling machines and devices; Z98.890 Other specified postprocedural states; Z86.16 Personal history of COVID-19; Z86.39 Personal history of other endocrine, nutritional and metabolic disease; Z88.8 Allergy status to other drugs, medicaments and biological substances; Z87.891 Personal history of nicotine dependence
CPT/HCPCS: 99212

== ENCOUNTER → 2023-12-26 | Outpatient (CLI) | payer MEDICAID | END | disposition home or self-care (01) | LOC: LABPAT 14:47 | PROVIDERS: ATTEND Orthopaedic Surgery | DX: Z01.818 Encounter for other preprocedural examination (principal); I10 Essential (primary) hypertension | CPT/HCPCS: 93005 ==

== ENCOUNTER 2023-12-29 13:31 | Day surgery (SDC) | payer MEDICAID ==
[2023-12-26 10:18] VITALS: BMI 55.7
--- NOTE | 2023-12-28 21:36 | HP ---
HISTORY AND PHYSICAL DATE OF SURGERY: 12/29/2023. HISTORY OF PRESENT ILLNESS: Akshat Melo is a 43-year-old gentleman seen with progressive right knee pain. We discussed options for treatment. He elected to proceed with right knee arthroscopy. Consent was obtained. PAST MEDICAL HISTORY: Hypertension. PAST SURGICAL HISTORY: Knee arthroscopy, right shoulder rotator cuff repair, cardiac catheterization. DAILY MEDICATIONS: 1. Losartan. 2. Motrin. 3. Ozempic. ALLERGIES: Iodine. SOCIAL HISTORY: Denies tobacco use. PHYSICAL EVALUATION OF THE RIGHT KNEE: His range of motion is 0 to 125 degrees. Mild effusion. Tenderness along the medial joint line. Positive medial Ferdinand's. Ligaments stable. Hip rotation without pain. Distal neurovascular exam is intact. IMAGING STUDIES: Right knee radiographs revealed mild to moderate osteoarthritis. IMPRESSION: Internal derangement of right knee with medial meniscal tear. PLAN: Right knee arthroscopy with partial meniscectomy and debridement. MMODL / IJN: [id number] /
[2023-12-29] MEDS: LACTATED RINGERS 1,000 ML IV SCH (13:49)
[2023-12-29] MEDS: ONDANSETRON 4 MG/2 ML VIAL IVP ONE (13:49)
[2023-12-29] MEDS: BUPIVACAINE (PF) 0.25% 30 ML VIAL SQ ONE ×2 (15:13→15:49)
[2023-12-29] MEDS ORDERED: fentaNYL (PF) 50 MCG/ML 2 ML AMP ONE (15:14)
[2023-12-29] MEDS ORDERED: KETOROLAC 15 MG/ML 1 ML VIAL ONE (15:14)
[2023-12-29] MEDS ORDERED: MIDAZOLAM 2 MG/2 ML VIAL ONE (15:14)
[2023-12-29] MEDS ORDERED: SUCCINYLCHOLINE CHLORIDE 200 MG/10 ML VIAL IV ONE (15:14)
[2023-12-29] MEDS ORDERED: LIDOCAINE 1% INJ 10MG/ML (20 ML MDV) ONE (15:14)
[2023-12-29] MEDS ORDERED: PROPOFOL 10 MG/ML 20 ML VIAL IV ONE (15:14)
[2023-12-29] MEDS: ceFAZolin 3 GM in SODIUM CHLORIDE 0.9% 100 ML IVPB PRN (15:16)
--- NOTE | 2023-12-29 16:07 | P.OP ---
Date of Procedure: 12/29/23 Preoperative Diagnosis: Internal derangement right knee Postoperative Diagnosis: 1. Tear medial lateral meniscus right knee 2. 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 Reactive synovitis medial, lateral and suprapatellar compartments right knee 4. Grade III chondromalacia lateral femoral condyle right knee 5. Grade III chondromalacia femoral sulcus left knee Procedure(s) Performed: 1. Arthroscopic partial medial and lateral meniscectomy right knee 2. Arthroscopic microfracture lateral tibial plateau right knee 3. Arthroscopic partial synovectomy medial, lateral and suprapatellar compartments right knee 4. Arthroscopic chondroplasty lateral femoral condyle right knee 5. Arthroscopic chondroplasty femoral sulcus left knee Anesthesia: GETA, local Surgeon: Can Hackett Estimated Blood Loss (ml): 8 Pathology: none sent Condition: stable Disposition: PACU Indications for Procedure: 43-year-old patient seen with progressive right knee pain. After treatment options were discussed, he elected to proceed with arthroscopy. Operative Findings: See description of procedure Description of Procedure: Patient was taken to the operative suite. Patient underwent a general anesthetic by the department of anesthesia. Patient was given preoperative antibiotics. The right lower extremity was placed in a well-padded arthroscopic leg bruce. The right leg was prepped and draped in the normal sterile orthopedic fashion. A lateral parapatellar and suprapatellar incision was made. Trochars were inserted. Arthroscopy was initiated. Suprapatellar pouch revealed diffuse thick reactive synovitis. The patellofemoral joint appeared to articular congruently. There was grade II chondromalacia of the patella without tears and grade III chondromalacia of the femoral sulcus with some osteochondral flap tears. The scope was guided into the medial gutter. No loose bodies or plica were identified. The scope was then guided into the medial compartment. A medial parapatellar incision was made. Trocar inserted followed by probe. There was a radial tear involving the anterior horn of the medial meniscus. The remainder of the meniscus appeared stable. There were grade I chondromalacia changes throughout the medial compartment without tears. There was thick reactive synovitis anteriorly. I performed a partial medial meniscectomy getting down to stable meniscal tissue. I performed a partial synovectomy decompressing the reactive synovitis anteriorly. The residual meniscus was stable. There was good decompression of the synovitis. Scope and probe were then guided into the intercondylar notch. Cruciates were identified, probed and found to be stable. The scope and probe were then guided into lateral compartment. There was a complex tear involving anterior horn and mid body areas of the lateral meniscus. There were grade III chondromalacia changes of the lateral femoral condyle with osteochondral flap tears. There were grade IV chondromalacia changes of the lateral tibial plateau with an area of exposed bone centrally. There was thick reactive synovitis anteriorly. I performed a partial lateral meniscectomy getting down to stable meniscal tissue. I per formed a chondroplasty of the lateral femoral condyle getting down to stable osteochondral tissue. I performed a partial synovectomy. I did note again that area of exposed bone on the central area of the lateral tibial plateau. I introduced a microfracture awl and I performed a microfracture to that area of exposed bone penetrating the bone with resultant bleeding at the microfracture site. The residual meniscus now was probed and was found to be stable. The residual osteochondral surface was stable. There was good decompression of the synovitis. The scope was in guided back into the suprapatellar compartment. I introduced a motorized shaver into the suprapatellar compartment. I performed a chondroplasty of the femoral sulcus getting down to stable osteochondral tissue. I performed a partial synovectomy decompressing the reactive synovitis. The shaver was removed. The residual osteochondral surface of the femoral sulcus appeared stable. I again noted grade III chondromalacia there. There was good decompression of the synovitis. I now took 1 more look around the entire knee, no residual debris. Instruments were now removed from the joint. The joint was infiltrated with .25% Marcaine. Steri-Strips were applied to the portal sites. Sterile dressings were applied. The patient was placed into a BARRY hose. No tourniquet was utilized. The patient was awakened, transferred to a bed and taken to recovery stable satisfactory condition.
[2023-12-29] MEDS: HYDROmorphone 0.5 MG/0.5 ML SYRINGE IVP PRN (16:24)
[2023-12-29 16:40] VITALS: RESP 16; TEMP 97.7
[2023-12-29 17:14] VITALS: PULSE 61
[2023-12-29] MEDS: HYDROcodone/APAP 5-325MG 1 EACH TAB ONE (17:21)
[2023-12-29 17:48] VITALS: BP 141/73
== END 2023-12-29 17:52 | disposition home or self-care (01) ==
LOC: OR 13:31
PROVIDERS: ATTEND Orthopaedic Surgery
DX: S83.271A Complex tear of lateral meniscus, current injury, right knee, initial encounter (principal); S83.241A Other tear of medial meniscus, current injury, right knee, initial encounter; M65.9 Synovitis and tenosynovitis, unspecified; M94.261 Chondromalacia, right knee; M17.11 Unilateral primary osteoarthritis, right knee; I10 Essential (primary) hypertension; G47.33 Obstructive sleep apnea (adult) (pediatric); Z88.8 Allergy status to other drugs, medicaments and biological substances; Z79.899 Other long term (current) drug therapy; Z79.85 Long-term (current) use of injectable non-insulin antidiabetic drugs; Z79.811 Long term (current) use of aromatase inhibitors; Z87.891 Personal history of nicotine dependence; X58.XXXA Exposure to other specified factors, initial encounter
CPT/HCPCS: 29880; 29879; 29876; J2250; J0330; J0690; J2405; J2001; J3010; J1885; J2704; J1170; J0665

== ENCOUNTER 2024-05-15 19:04 | Emergency (ER) | payer MEDICAID ==
[2024-05-15] MEDS ORDERED: KETOROLAC 15 MG/ML 1 ML VIAL ONE (21:29)
[2024-05-15] MEDS ORDERED: MORPHINE SULFATE 4 MG/ML SYRINGE ONE ×2 (21:29→23:37)
[2024-05-15] MEDS ORDERED: SODIUM CHLORIDE 0.9% 1,000 ML BAG ONE (21:30)
--- NOTE | 2024-07-05 18:26 | CT ---
EXAM: CT Abdomen and Pelvis With Intravenous Contrast CLINICAL HISTORY: Abdominal pain TECHNIQUE: Axial computed tomography images of the abdomen and pelvis with intravenous contrast. CTDI is 89.9 mGy and DLP is 4362.4 mGy-cm. This CT exam was performed using one or more of the following dose reduction techniques: automated exposure control, adjustment of the mA and/or kV according to patient size, and/or use of iterative reconstruction technique. COMPARISON: No relevant prior studies available. FINDINGS: Lung bases:Unremarkable. No mass. No consolidation. ABDOMEN: Liver:Hepatic steatosis. Gallbladder and bile ducts:Unremarkable. No calcified stones. No ductal dilation. Pancreas:Unremarkable. No mass. No ductal dilation. Spleen:Unremarkable. No splenomegaly. Adrenals:Unremarkable. No mass. Kidneys and ureters:Unremarkable. No solid mass. No hydronephrosis. Stomach and bowel:Diverticulosis, without acute diverticulitis. No small bowel obstruction. No free intraperitoneal air. PELVIS: Appendix:No findings to suggest acute appendicitis. Bladder:Unremarkable. No mass. Reproductive:Unremarkable as visualized. ABDOMEN and PELVIS: Intraperitoneal space:Unremarkable. No free air. No significant fluid collection. Bones/joints:Grade 2 anterolisthesis of L5 on S1, measuring 1.7 cm. Bilateral pars defects at L5. No acute fracture. No dislocation. Soft tissues:Unremarkable. Vasculature:Unremarkable. No abdominal aortic aneurysm. Lymph nodes:Unremarkable. No enlarged lymph nodes. IMPRESSION: 1. Hepatic steatosis. 2. Grade 2 anterolisthesis of L5 on S1, measuring 1.7 cm. Bilateral pars defects at L5. 3. Diverticulosis, without acute diverticulitis. No small bowel obstruction. No free intraperitoneal air. Radiologist: Yadiel Lindquist MD Electronically Signed: 05/16/24 02:19 Study first marked ready to read at 23:40, study last marked ready to read at 23:40, initial results transmitted at 02:19 [facility]
== END 2024-05-16 02:35 | disposition home or self-care (01) ==
LOC: EC 19:04
DX: R10.84 Generalized abdominal pain (principal)
CPT/HCPCS: 74177; 93005; 96361; 96374; 96375; 99284

== ENCOUNTER 2024-05-16 10:29 | Emergency (ER) | payer MEDICAID ==
[2024-05-16] MEDS ORDERED: cloNIDine HCL 0.2 MG TAB ONE (13:04)
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
== END 2024-05-16 14:05 | disposition home or self-care (01) ==
LOC: EC 10:29
CPT/HCPCS: 71046; 99283

== ENCOUNTER → 2024-06-27 | Outpatient (CLI) | payer MEDICAID ==
[2024-06-27 15:51] VITALS: BP 176/93; PULSE 76; RESP 16; TEMP 98
--- NOTE | 2024-06-27 16:54 | P.PROGSL ---
Subjective DATE: 06/27/2024 FOLLOW UP VISIT. Patient with obstructive sleep apnea hypopnea syndrome return to sleep center for follow-up visit. Information from previous visit have been reviewed. Patient is using PAP equipment every night for the whole night, getting PAP supplies in time. The patient does not have significant problems with the mask, PAP unit and humidification. [place] sleepiness scale is 6, which is normal. I checked information from PAP unit. PAP unit pressure 15 cm H2O. Usage is 100% for more then 4 hours, average 6.9 hours per night. Leak is 26 l/m, which is in acceptable range. Apnea Hypopnea Index is 0.3, which is perfect. MEDICATIONS have been reviewed, please see below. During physical exam: GENERAL: A pleasant patient without any distress. VITAL SIGNS: Please see below, weight is 424 lbs. HEENT: PERRLA, EOMI.low position of soft palate, Mallapati 3. NECK: Supple. No JVD. LUNGS: Clear to percussion and to auscultation. Good air exchange. No wheezing or rhonchi. HEART: S1, S2 regular. ABDOMEN: Soft and nontender. Obese EXTREMITIES: No clubbing or cyanosis. SKIRT TRIMMER: Awake, alert, and oriented x3. No focal deficit. Impressions: 1. Obstructive sleep apnea-hypopnea syndrome. Patient demonstrated great compliance with treatment, benefiting from treatment. 2. Obesity, patient increased weight on 36 pounds, BMI 60.8. 3. Hypertension. 4. History of low testosterone level. 5. Status post right knee arthroscopic surgery. Plan: 1. Continue using PAP equipment every night for the whole night. 2. Sleep hygiene with regular time in bed for at least 7.5-8 hours 3. PAP unit should stay lower then position of the head. 4. Advised patient to remove all remaining water from humidifier canister daily and make it dry after each usage. Refill canister with fresh distilled water before each usage. 5. Watching and aggressive losing weight. 6. Precautions related to driving. No driving if feel any sleepiness. 7. I will maintain prescription for PAP supplies including mask, tube, filters. 8. Follow up visit in 6 months or earlier if patient has any problems. Thank you very much for allowing me to participate in the management of your patient. Xander Brannon MD, PhD, FAASM. Diplomat of [place] [employer], Sleep Medicine Board by [place] [employer] Casting Sorter of [facility] [place] Objective - Vital Signs Vital Signs: Vital Signs Temp 98 F 06/27/24 15:50 Pulse 76 06/27/24 15:50 Resp 16 06/27/24 15:50 BP 176/93 06/27/24 15:50 Pulse Ox 96 06/27/24 15:50 FiO2 Intake & Output 06/26/24 06/27/24 06/27/24 18:59 06:59 18:59 Weight 192.323 kg Home Medications: Home Medications Medication Instructions Recorded Confirmed Type Anastrozole 1 mg PO Q48H 10/06/20 06/27/24 History Multivitamins, Thera [Multivitamin 1 tab PO DAILY 10/06/20 06/27/24 History (formulary)] Cholecalciferol (Vitamin D3) 125 mcg PO DAILY 04/19/22 06/27/24 History [Vitamin D3 (125 MCG = 5,000 IU)] Losartan/Hydrochlorothiazide 1 tab PO DAILY 04/19/22 06/27/24 History [Hyzaar 100-25 Tablet] Ferrous Sulfate [Feosol] 325 mg PO DAILY 12/26/23 06/27/24 History Pantoprazole [Protonix] 40 mg PO DAILY 12/26/23 06/27/24 History HYDROcodone/APAP 5-325MG [[place] 1 tab PO Q6HR PRN #12 tab 12/29/23 Rx 5-325] FLUoxetine HCL 20 mg PO DAILY 06/27/24 06/27/24 History amLODIPine [Norvasc] 10 mg PO DAILY 06/27/24 06/27/24 History
== END ==
LOC: 3 N SLEEP 15:32
PROVIDERS: ATTEND Internal Medicine
CPT/HCPCS: 99212